=== PATIENT | female | born 1995 | race Caucasian/White ===

== ENCOUNTER 2016-08-12 16:43 | Inpatient (IN) | payer OTHER ==
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
[2016-08-12 21:32] VITALS: BMI 20.6
[2016-08-12] MEDS ORDERED: P-EPHED 60MG/TRIPROLIDI 2.5MG TABLET PO PRN (21:37)
[2016-08-12] MEDS ORDERED: MAG HYDROX/AL HYDROX/SIMETH 30 ML UNIT-DOSE CUP PO PRN (21:37)
[2016-08-12] MEDS ORDERED: MENTHOL/PHENOL 1 EACH UD MM PRN (21:37)
[2016-08-12] MEDS ORDERED: METHADONE HCL 10 MG TABLET (FOR DETOX USE ONLY) PO ONE ×2 (21:37→23:00)
[2016-08-12] MEDS ORDERED: LOPERAMIDE HCL 2 MG CAPSULE PO PRN (21:37)
[2016-08-12] MEDS ORDERED: MAGNESIUM HYDROX 2400MG/30ML ORAL SUSPENSION 30 ML CUP PO PRN (21:37)
[2016-08-12] MEDS ORDERED: diazePAM 5 MG TABLET PO ONE (21:37)
[2016-08-12] MEDS ORDERED: ACETAMINOPHEN 325 MG TABLET (FP) PO PRN (21:37)
[2016-08-12] MEDS ORDERED: guaiFENesin/D-METHORPHAN HB 10 ML UNIT-DOSE CUPS PO PRN (21:37)
[2016-08-12] MEDS ORDERED: MAGNESIUM CITRATE 300 ML BOTTLE PO PRN (21:37)
[2016-08-12] MEDS ORDERED: IBUPROFEN 400 MG TABLET (FP) PO PRN (21:37)
[2016-08-12] MEDS ORDERED: diazePAM 5 MG TABLET PO PRN (21:37)
[2016-08-12] MEDS ORDERED: diazePAM 5 MG TABLET PO SCH (22:00)
[2016-08-13] MEDS ORDERED: METHADONE HCL 10 MG TABLET (FOR DETOX USE ONLY) PO ONE ×6 (00:44→23:00)
[2016-08-13] MEDS ORDERED: diazePAM 5 MG TABLET PO PRN (00:44)
[2016-08-13] MEDS ORDERED: diazePAM 5 MG TABLET PO ONE ×2 (00:44→01:37)
[2016-08-13 02:38] LABS: URINE APPEARANCE CLOUDY; URINE BILIRUBIN NEGATIVE (NEGATIVE); URINE BLOOD NEGATIVE (NEGATIVE); URINE COLOR YELLOW; URINE GLUCOSE (UA) NEGATIVE (NEGATIVE); URINE KETONE NEGATIVE (NEGATIVE); URINE LEUK ESTERASE NEGATIVE (NEGATIVE); URINE NITRITE NEGATIVE (NEGATIVE); URINE PROTEIN NEGATIVE (NEGATIVE); URINE UROBILINOGEN NEGATIVE E.U./dl (0.2-1.0)
[2016-08-13] MEDS: THIAMINE HCL 100 MG TABLET (FP) PO SCH ×2 (04:04→22:18)
[2016-08-13] MEDS ORDERED: diazePAM 5 MG TABLET PO SCH (06:00)
[2016-08-13] MEDS: diazePAM 5 MG TABLET PO SCH ×3 (06:48→22:19)
--- NOTE | 2016-08-13 07:41 | CONSULT ---
[facility] Psychiatric Consult - Data Date of interview: 08/13/16 Admission source: [facility] Identifying data: This is 21 years old female with no psychiatric hospitalization history intoxicated with: Opioids, Xanax and Nicotine Substance Abuse History: Smoking history: Current every day smoker. Have you smoked in the past 12 months: Yes. Aproximately how many cigarettes per day: 10. Cigars Per Day: 0. Hx Chewing Tobacco Use: No. Initiated information on smoking cessation: Yes. 'Breaking Loose' booklet given: 08/12/16. - Substance & Tx. History. Hx Alcohol Use: No. Hx Substance Use: Yes. Substance Use Type : Marijuana, Opiates, Tranquilizers. Hx Substance Use Treatment: Yes. - Substances Abused. Heroin. Route: Injection. Frequency: Daily. Amount used: 10 BAGS. Age of first use: 19. Date of Last Use: 08/12/16. Alprazolam (Xanax). Route: Oral. Frequency: Daily. Amount used: 1.5 MG. Age of first use: 19. Date of Last Use: 08/12/16 Medical History: Asthma, Weight loss history Psychiatric History: Patient reports history [id number] anxiety, reports no medications taking prior to admission Physical/Sexual Abuse/Trauma History: Denies Additional Comment: Observation. Detox Unit Care Protocol Mental Status Exam - Mental Status Exam Alert and Oriented to: Person Cognitive Function: Fair Patient Appearance: Unkempt Mood: Sad Affect: Flat Patient Behavior: Sedated Speech Pattern: Delayed Voice Loudness: Mildly Soft/Quiet Thought Process: Circumstantial Thought Disorder: Being Controlled Hallucinations: Denies Suicidal Ideation: Denies Homicidal Ideation: Denies Insight/Judgement: Fair Sleep: Difficulty falling asleep Appetite: Weight loss Muscle strength/Tone: Mild Hypotonicity Gait/Station: Shuffling Additional Comments: Observation. Detox Unit Care Protocol Psychiatric Findings - Problem List ([place] 1, 2,3) (1) Nicotine dependence Current Visit: Yes Status: Acute Qualifiers: Nicotine product type: cigarettes Substance use status: uncomplicated Qualified Code(s): F17.210 - Nicotine dependence, cigarettes, uncomplicated (2) Opioid dependence with withdrawal Current Visit: Yes Status: Acute (3) Sedative, hypnotic or anxiolytic dependence with withdrawal, uncomplicated Current Visit: Yes Status: Acute (4) Drug-induced mood disorder Current Visit: Yes Status: Acute - Initial Treatment Plan Initial Treatment Plan: Observation. Detox Unit Care Protocol
[2016-08-13] MEDS ORDERED: METHADONE HCL 10 MG TABLET (FOR DETOX USE ONLY) PO SCH (10:00)
[2016-08-13] MEDS: PRENATAL VITAMINS W/ FOLIC ACID TABLET (FP) PO SCH (10:34)
[2016-08-13] MEDS: NICOTINE 14 MG/24 HOURS TOPICAL PATCH TD SCH (10:35)
[2016-08-13] MEDS: diazePAM 5 MG TABLET PO PRN ×2 (10:35→20:13)
[2016-08-13] MEDS: NICOTINE POLACRILEX 2 MG GUM BC PRN ×2 (10:35→20:40)
[2016-08-13 10:46] LABS: MCH 29.1 pg (25.7-33.7); MCHC 33.2 g/dl (32.0-36.0); MEAN CELL VOLUME 87.6 fl (80-96); MEAN PLT VOLUME 7.9 fl (7.5-11.1); PLATELET COUNT 406 K/MM3 (134-434); RDW 14.1 % (11.6-15.6); WHITE BLOOD COUNT 9.4 K/mm3 (4.0-10.0)
[2016-08-13 10:52] LABS: ALBUMIN 3.8 g/dl (3.4-5.0); ALK PHOS 72 U/L (45-117); ANION GAP 7 (8-16); BILIRUBIN,TOTAL 0.3 mg/dL (0.2-1.0); CALCIUM 9.2 mg/dL (8.5-10.1); CO2 28 mmol/L (21-32); CREATININE 0.8 mg/dL (0.55-1.02); GLUCOSE,RANDOM 103 mg/dL (74-106); SGOT/AST 10 U/L (15-37); SGPT/ALT 13 U/L (12-78)
--- NOTE | 2016-08-13 11:17 | PN ---
[facility] CIWA - CIWA Score Nausea/Vomitin-No Nausea/No Vomiting Muscle Tremors: 4-Moderate,w/Arms Extend Anxiety: 3 Agitation: 3 Paroxysmal Sweats: 3 Orientation: 0-Oriented Tacttile Disturbances: 0-None Auditory Disturbances: 0-None Visual Disturbances: 0-None Headache: 1-Very Mild CIWA-Ar Total Score: 14 BHS COWS - Scale Resting Pulse: 1= MD 81-100 Sweatin=Flushed/Facial Moisture Restless Observation: 1= Difficult to Sit Still Pupil Size: 0= Normal to Room Light Bone or Joint Aches: 2= Severe Diffuse Aches Runny Nose/ Eye Tearin= Runny Nose/Eyes GI Upset > 30mins: 1= Stomach Cramp Tremor Observation of Outstretched Hands: 2= Slight Tremor Visible Yawning Observation: 2= >3x During Session Anxiety or Irritability: 2=Irritable/Anxious Goose Flesh Skin: 0=Smooth Skin COWS Score: 15 [facility] Progress Note (SOAP) Subjective: agitation anxiety stomach cramps sweats chills interrupted sleep Objective: 08/13/16 11:16 Vital Signs Temperature 98.1 F 08/13/16 10:09 Pulse Rate 82 08/13/16 10:09 Respiratory Rate 18 08/13/16 10:09 Blood Pressure 134/86 08/13/16 10:09 O2 Sat by Pulse Oximetry (%) Laboratory Tests 08/13/16 08/13/16 08/13/16 00:05 07:00 07:00 WBC 9.4 RBC 4.42 Hgb 12.8 Hct 38.7 MCV 87.6 MCHC 33.2 RDW 14.1 Plt Count 406 MPV 7.9 Sodium 141 Potassium 4.1 Chloride 106 Carbon Dioxide 28 Anion Gap 7 L BUN 14 Creatinine 0.8 Creat Clearance w eGFR > 60 Random Glucose 103 Calcium 9.2 Total Bilirubin 0.3 AST 10 L ALT 13 Alkaline Phosphatase 72 Total Protein 7.0 Albumin 3.8 Urine Color Yellow Urine Appearance Cloudy Urine pH 6.0 Ur Specific [place] 1.013 Urine Protein Negative Urine Glucose (UA) Negative Urine Ketones Negative Urine Blood Negative Urine Nitrite Negative Urine Bilirubin Negative Urine Urobilinogen Negative Ur Leukocyte Esterase Negative awake/alert ambulating no acute distress Assessment: 08/13/16 11:16 withdrawal sx Plan: continue detox increase fluids mom/mylanta prn
--- NOTE | 2016-08-13 11:51 | EKG ---
Test Reason : Blood Pressure : / mmHG Vent. Rate : 064 BPM Atrial Rate : 064 BPM P-R Int : 140 ms QRS Dur : 086 ms QT Int : 400 ms P-R-T Axes : 067 064 055 degrees QTc Int : 412 ms NORMAL SINUS RHYTHM WITH SINUS ARRHYTHMIA NORMAL ECG NO PREVIOUS ECGS AVAILABLE Confirmed by LIMA HERNANDES, MICKEY ([id number]) on 08/13/2016 11:51:11 AM Referred By: Confirmed By:MICKEY AMATO MD
[2016-08-13] MEDS: CYCLOBENZAPRINE HCL 10 MG TABLET (FP) PO PRN ×2 (13:18→22:19)
[2016-08-14] MEDS: diazePAM 5 MG TABLET PO SCH ×3 (05:59→22:26)
[2016-08-14] MEDS ORDERED: METHADONE HCL 10 MG TABLET (FOR DETOX USE ONLY) PO SCH ×2 (10:00)
[2016-08-14] MEDS ORDERED: METHADONE HCL 5 MG TABLET (FOR DETOX USE ONLY) PO SCH (10:00)
[2016-08-14] MEDS ORDERED: diazePAM 5 MG TABLET PO SCH (10:00)
[2016-08-14] MEDS: diazePAM 5 MG TABLET PO PRN ×2 (10:45→17:53)
[2016-08-14] MEDS: PRENATAL VITAMINS W/ FOLIC ACID TABLET (FP) PO SCH (10:45)
[2016-08-14] MEDS: NICOTINE 14 MG/24 HOURS TOPICAL PATCH TD SCH (10:47)
[2016-08-14] MEDS: NICOTINE POLACRILEX 2 MG GUM BC PRN ×3 (10:47→19:46)
--- NOTE | 2016-08-14 11:08 | PN ---
[facility] CIWA - CIWA Score Nausea/Vomitin Muscle Tremors: 3 Anxiety: 3 Agitation: 3 Paroxysmal Sweats: 3 Orientation: 0-Oriented Tacttile Disturbances: 1-Very Mild Itch/Numbness Auditory Disturbances: 0-None Visual Disturbances: 0-None Headache: 0-None Present CIWA-Ar Total Score: 15 S COWS - Scale Resting Pulse: 0= [place] 80 or Below Sweatin=Flushed/Facial Moisture Restless Observation: 1= Difficult to Sit Still Pupil Size: 1= Pupils >than Normal Bone or Joint Aches: 1= Mild Discomfort Runny Nose/ Eye Tearin= Nasal Congestion GI Upset > 30mins: 1= Stomach Cramp Tremor Observation of Outstretched Hands: 1= Tremor [place], Not Seen Yawning Observation: 0= None Anxiety or Irritability: 2=Irritable/Anxious Goose Flesh Skin: 0=Smooth Skin COWS Score: 10 S Progress Note (SOAP) Subjective: interrupted sleep, sweats, shakes Objective: 08/14/16 11:07 Vital Signs Temperature 97 F L 08/14/16 10:15 Pulse Rate 77 08/14/16 10:15 Respiratory Rate 18 08/14/16 10:15 Blood Pressure 117/64 08/14/16 10:15 O2 Sat by Pulse Oximetry (%) Laboratory Tests 08/13/16 08/13/16 08/13/16 00:05 07:00 07:00 WBC 9.4 RBC 4.42 Hgb 12.8 Hct 38.7 MCV 87.6 MCHC 33.2 RDW 14.1 Plt Count 406 MPV 7.9 Sodium 141 Potassium 4.1 Chloride 106 Carbon Dioxide 28 Anion Gap 7 L BUN 14 Creatinine 0.8 Creat Clearance w eGFR > 60 Random Glucose 103 Calcium 9.2 Total Bilirubin 0.3 AST 10 L ALT 13 Alkaline Phosphatase 72 Total Protein 7.0 Albumin 3.8 Urine Color Yellow Urine Appearance Cloudy Urine pH 6.0 Ur Specific [place] 1.013 Urine Protein Negative Urine Glucose (UA) Negative Urine Ketones Negative Urine Blood Negative Urine Nitrite Negative Urine Bilirubin Negative Urine Urobilinogen Negative Ur Leukocyte Esterase Negative RPR Titer Hepatitis C Antibody 08/13/16 08/13/16 07:00 09:00 WBC RBC Hgb Hct MCV MCHC RDW Plt Count MPV Sodium Potassium Chloride Carbon Dioxide Anion Gap BUN Creatinine Creat Clearance w eGFR Random Glucose Calcium Total Bilirubin AST ALT Alkaline Phosphatase Total Protein Albumin Urine Color Urine Appearance Urine pH Ur Specific [place] Urine Protein Urine Glucose (UA) Urine Ketones Urine Blood Urine Nitrite Urine Bilirubin Urine Urobilinogen Ur Leukocyte Esterase RPR Titer Nonreactive Hepatitis C Antibody <0.1 Assessment: 08/14/16 11:07 withdrawl sx's Plan: cont. detox increase fluids
[2016-08-14] MEDS: CYCLOBENZAPRINE HCL 10 MG TABLET (FP) PO PRN (22:26)
[2016-08-14] MEDS: diphenhydrAMINE HCL 50 MG CAPSULE PO PRN (22:26)
[2016-08-14] MEDS: THIAMINE HCL 100 MG TABLET (FP) PO SCH (22:26)
[2016-08-15] MEDS ORDERED: diazePAM 5 MG TABLET PO SCH (10:00)
[2016-08-15] MEDS ORDERED: METHADONE HCL 5 MG TABLET (FOR DETOX USE ONLY) PO SCH (10:00)
[2016-08-15] MEDS: METHADONE HCL 5 MG TABLET (FOR DETOX USE ONLY) PO SCH (11:08)
[2016-08-15] MEDS: PRENATAL VITAMINS W/ FOLIC ACID TABLET (FP) PO SCH (11:08)
[2016-08-15] MEDS: diazePAM 5 MG TABLET PO SCH ×2 (11:09→22:32)
[2016-08-15] MEDS: NICOTINE 14 MG/24 HOURS TOPICAL PATCH TD SCH (11:10)
[2016-08-15] MEDS: NICOTINE POLACRILEX 2 MG GUM BC PRN ×3 (11:12→23:23)
[2016-08-15] MEDS ORDERED: ALBUTEROL SO4 6.7 GM HFA INHALER IH PRN (11:14)
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
[2016-08-15] MEDS: FLUTICASONE/SALMETEROL 100 MCG/50 MCG DISKUS IH SCH ×2 (12:09→22:31)
--- NOTE | 2016-08-15 12:17 | PN ---
[facility] Progress Note (SOAP) Subjective: sweats interrupted sleep i need to speak with psych again Objective: 08/15/16 12:16 Vital Signs Temperature 97.2 F L 08/15/16 10:00 Pulse Rate 92 H 08/15/16 10:00 Respiratory Rate 18 08/15/16 10:00 Blood Pressure 117/62 08/15/16 10:00 O2 Sat by Pulse Oximetry (%) Laboratory Tests 08/13/16 08/13/16 08/13/16 00:05 07:00 07:00 WBC 9.4 RBC 4.42 Hgb 12.8 Hct 38.7 MCV 87.6 MCHC 33.2 RDW 14.1 Plt Count 406 MPV 7.9 Sodium 141 Potassium 4.1 Chloride 106 Carbon Dioxide 28 Anion Gap 7 L BUN 14 Creatinine 0.8 Creat Clearance w eGFR > 60 Random Glucose 103 Calcium 9.2 Total Bilirubin 0.3 AST 10 L ALT 13 Alkaline Phosphatase 72 Total Protein 7.0 Albumin 3.8 Urine Color Yellow Urine Appearance Cloudy Urine pH 6.0 Ur Specific [place] 1.013 Urine Protein Negative Urine Glucose (UA) Negative Urine Ketones Negative Urine Blood Negative Urine Nitrite Negative Urine Bilirubin Negative Urine Urobilinogen Negative Ur Leukocyte Esterase Negative RPR Titer Hepatitis C Antibody 08/13/16 08/13/16 07:00 09:00 WBC RBC Hgb Hct MCV MCHC RDW Plt Count MPV Sodium Potassium Chloride Carbon Dioxide Anion Gap BUN Creatinine Creat Clearance w eGFR Random Glucose Calcium Total Bilirubin AST ALT Alkaline Phosphatase Total Protein Albumin Urine Color Urine Appearance Urine pH Ur Specific [place] Urine Protein Urine Glucose (UA) Urine Ketones Urine Blood Urine Nitrite Urine Bilirubin Urine Urobilinogen Ur Leukocyte Esterase RPR Titer Nonreactive Hepatitis C Antibody <0.1 awake/alert ambulating no acute distress Assessment: 08/15/16 12:16 withdrawal sx Plan: continue detox increase fluids psych ordered.
[2016-08-15] MEDS: diazePAM 5 MG TABLET PO PRN ×2 (15:34→19:57)
[2016-08-15] MEDS ORDERED: QUEtiapine FUMARATE 25 MG TABLET (FP) PO SCH (22:00)
[2016-08-15] MEDS: CYCLOBENZAPRINE HCL 10 MG TABLET (FP) PO PRN (22:31)
[2016-08-15] MEDS: diphenhydrAMINE HCL 50 MG CAPSULE PO PRN (22:31)
[2016-08-15] MEDS: THIAMINE HCL 100 MG TABLET (FP) PO SCH (22:32)
[2016-08-16] MEDS ORDERED: hydrOXYzine HCL 100 MG/2 ML VIAL IM PRN (04:43)
[2016-08-16] MEDS ORDERED: hydrOXYzine PAMOATE 50 MG CAPSULE (FP) PO PRN (05:02)
[2016-08-16] MEDS ORDERED: METHADONE HCL 10 MG TABLET (FOR DETOX USE ONLY) PO SCH (10:00)
[2016-08-16] MEDS ORDERED: diazePAM 5 MG TABLET PO SCH (10:00)
[2016-08-16 10:08] VITALS: BP 121/65; PULSE 92; TEMP 98.1
[2016-08-16] MEDS: PRENATAL VITAMINS W/ FOLIC ACID TABLET (FP) PO SCH (11:45)
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
[2016-08-16] MEDS: NICOTINE POLACRILEX 2 MG GUM BC PRN (11:46)
[2016-08-16] MEDS: METHADONE HCL 5 MG TABLET (FOR DETOX USE ONLY) PO SCH (11:46)
[2016-08-16] MEDS: diazePAM 5 MG TABLET PO SCH (11:46)
[2016-08-16] MEDS: NICOTINE 14 MG/24 HOURS TOPICAL PATCH TD SCH (11:47)
[2016-08-16] MEDS: FLUTICASONE/SALMETEROL 100 MCG/50 MCG DISKUS IH SCH (11:47)
--- NOTE | 2016-08-16 11:47 | DS ---
[facility] Detox Discharge Summary Admission Date: 08/12/16 Discharge Date: 08/16/16 - History Present History: Opioid Dependence Additional Comments: astma, nicotine dependence, anxiety, depression, insomnia - Physical Exam Results Vital Signs: Vital Signs Temperature 98.1 F 08/16/16 10:07 Pulse Rate 92 H 08/16/16 10:07 Respiratory Rate 16 08/16/16 10:07 Blood Pressure 121/65 08/16/16 10:07 O2 Sat by Pulse Oximetry (%) Pertinent Admission Physical Exam Findings: withdrawal sx - Treatment Hospital Course: Detox Protocol Followed, Detoxed Safely, Responded well, Discharged Condition Good, Rehab Referral Accepted Patient has Accepted a Rehab Referral to: Yes - Medication Discharge Medications: Ambulatory Orders Quetiapine Fumarate [Seroquel -] 25 mg PO HS #30 tablet 08/15/16 - Diagnosis (1) Asthma Current Visit: Yes Status: Acute Qualifiers: Asthma severity: mild intermittent Asthma complication type: with status asthmaticus Qualified Code(s): J45.22 - Mild intermittent asthma with status asthmaticus (2) Drug-induced mood disorder Current Visit: Yes Status: Acute (3) Nicotine dependence Current Visit: Yes Status: Acute Qualifiers: Nicotine product type: cigarettes Substance use status: uncomplicated Qualified Code(s): F17.210 - Nicotine dependence, cigarettes, uncomplicated (4) Opioid dependence with withdrawal Current Visit: Yes Status: Acute (5) Sedative, hypnotic or anxiolytic dependence with withdrawal, uncomplicated Current Visit: Yes Status: Acute (6) Weight loss Current Visit: Yes Status: Acute (7) Anxiety Current Visit: Yes Status: Suspected - AMA Did Patient Leave Against Medical Advice: No
[2016-08-17] MEDS ORDERED: METHADONE HCL 5 MG TABLET (FOR DETOX USE ONLY) PO SCH (06:00)
[2016-08-17] MEDS ORDERED: diazePAM 5 MG TABLET PO SCH ×2 (10:00)
[2016-08-17] MEDS ORDERED: METHADONE HCL 10 MG TABLET (FOR DETOX USE ONLY) PO SCH ×2 (10:00)
[2016-08-18] MEDS ORDERED: METHADONE HCL 5 MG TABLET (FOR DETOX USE ONLY) PO SCH ×2 (06:00)
== END 2016-08-16 12:08 | disposition home or self-care (01) | DRG 773 ==
LOC: YASAS 16:43 → Y6N 22:38
PROVIDERS: ADMIT Internal Medicine Addiction Medicine; ATTEND Internal Medicine Addiction Medicine
PROC: HZ2ZZZZ Detoxification Services for Substance Abuse Treatment (ICD-10-PCS; principal; 2016-08-12)
DX: F11.23 Opioid dependence with withdrawal (principal); F13.230 Sedative, hypnotic or anxiolytic dependence with withdrawal, uncomplicated; F17.210 Nicotine dependence, cigarettes, uncomplicated; F19.24 Other psychoactive substance dependence with psychoactive substance-induced mood disorder; F41.9 Anxiety disorder, unspecified; J45.22 Mild intermittent asthma with status asthmaticus; Z87.898 Personal history of other specified conditions; Z91.5 Personal history of self-harm
CPT/HCPCS: 36415; 71020-TC; 80053; 81003; 85027; 86593; 86803; 93005; 93010

== ENCOUNTER 2017-11-22 11:57 | Inpatient (IN) | payer OTHER ==
[2017-11-22 13:07] VITALS: BMI 20.1
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
[2017-11-22] MEDS ORDERED: IBUPROFEN 400 MG TABLET (FP) PO PRN (14:16)
[2017-11-22] MEDS ORDERED: P-EPHED 60MG/TRIPROLIDI 2.5MG TABLET PO PRN (14:16)
[2017-11-22] MEDS ORDERED: ACETAMINOPHEN 325 MG TABLET (FP) PO PRN (14:16)
[2017-11-22] MEDS ORDERED: MENTHOL/PHENOL 1 EACH UD MM PRN (14:16)
[2017-11-22] MEDS ORDERED: LOPERAMIDE HCL 2 MG CAPSULE PO PRN (14:16)
[2017-11-22] MEDS ORDERED: MAGNESIUM CITRATE 300 ML BOTTLE PO PRN (14:16)
[2017-11-22] MEDS ORDERED: MAGNESIUM HYDROX 2400MG/30ML ORAL SUSPENSION 30 ML CUP PO PRN (14:16)
[2017-11-22] MEDS ORDERED: MAG HYDROX/AL HYDROX/SIMETH 30 ML UNIT-DOSE CUP PO PRN (14:16)
[2017-11-22] MEDS ORDERED: guaiFENesin/D-METHORPHAN HB 10 ML UNIT-DOSE CUPS PO PRN (14:16)
[2017-11-22] MEDS ORDERED: METHADONE HCL 10 MG TABLET (FOR DETOX USE ONLY) PO ONE ×2 (17:00→23:00)
[2017-11-22] MEDS: diazePAM 5 MG TABLET PO PRN ×2 (18:28→22:18)
[2017-11-22] MEDS ORDERED: MELATONIN 5 MG TABLETS PO PRN (22:00)
[2017-11-22] MEDS: THIAMINE HCL 100 MG TABLET (FP) PO SCH (22:18)
[2017-11-23 09:47] LABS: HEMATOCRIT 36.6 % (32.4-45.2); HEMOGLOBIN 12.4 GM/dL (10.7-15.3); MCH 29.8 pg (25.7-33.7); MCHC 33.8 g/dl (32.0-36.0); MEAN CELL VOLUME 88.1 fl (80-96); MEAN PLT VOLUME 7.8 fl (7.5-11.1); PLATELET COUNT 330 K/MM3 (134-434); RBC 4.15 M/mm3 (3.60-5.2); RDW 13.2 % (11.6-15.6)
[2017-11-23] MEDS ORDERED: METHADONE HCL 10 MG TABLET (FOR DETOX USE ONLY) PO ONE (10:00)
[2017-11-23 10:04] LABS: ALBUMIN 3.3 g/dl (3.4-5.0); ANION GAP 3 (8-16); BLOOD UREA NITROGEN 14 mg/dL (7-18); CALCIUM 8.7 mg/dL (8.5-10.1); CHLORIDE 106 mmol/L (98-107); CO2 30 mmol/L (21-32); GLUCOSE,RANDOM 85 mg/dL (74-106); POTASSIUM 4.3 mmol/L (3.5-5.1); SODIUM 139 mmol/L (136-145)
[2017-11-23 10:08] LABS: ALK PHOS 75 U/L (45-117); BILIRUBIN,TOTAL 0.2 mg/dL (0.2-1.0); CREATININE 0.7 mg/dL (0.55-1.02); SGOT/AST 12 U/L (15-37); SGPT/ALT 15 U/L (12-78); TOT PROT 6.6 g/dl (6.4-8.2)
[2017-11-23] MEDS: PRENATAL VITAMINS W/ FOLIC ACID TABLET (FP) PO SCH (10:27)
[2017-11-23] MEDS: diazePAM 5 MG TABLET PO PRN ×3 (10:28→18:48)
--- NOTE | 2017-11-23 10:31 | PN ---
BHS COWS - Scale Resting Pulse: 1= [place] 81-100 Sweatin= Chills/Flushing Restless Observation: 1= Difficult to Sit Still Pupil Size: 1= Pupils >than Normal Bone or Joint Aches: 2= Severe Diffuse Aches Runny Nose/ Eye Tearin= Runny Nose/Eyes GI Upset > 30mins: 2= Nausea/Diarrhea Tremor Observation of Outstretched Hands: 2= Slight Tremor Visible Yawning Observation: 2= >3x During Session Anxiety or Irritability: 2=Irritable/Anxious Goose Flesh Skin: 0=Smooth Skin COWS Score: 16 BHS Progress Note (SOAP) Subjective: joint aches body pain gi distress sweat tremor trouble sleep at night Objective: 11/23/17 10:29 Vital Signs Temperature 95.7 F L 11/23/17 10:11 Pulse Rate 85 11/23/17 10:11 Respiratory Rate 18 11/23/17 10:11 Blood Pressure 129/70 11/23/17 10:11 O2 Sat by Pulse Oximetry (%) Laboratory Last Values WBC 7.0 K/mm3 (4.0-10.0) 11/23/17 07:00 RBC 4.15 M/mm3 (3.60-5.2) 11/23/17 07:00 Hgb 12.4 GM/dL (10.7-15.3) 11/23/17 07:00 Hct 36.6 % (32.4-45.2) 11/23/17 07:00 MCV 88.1 fl (80-96) 11/23/17 07:00 MCH 29.8 pg (25.7-33.7) 11/23/17 07:00 MCHC 33.8 g/dl (32.0-36.0) 11/23/17 07:00 RDW 13.2 % (11.6-15.6) 11/23/17 07:00 Plt Count 330 K/MM3 (134-434) 11/23/17 07:00 MPV 7.8 fl (7.5-11.1) 11/23/17 07:00 Sodium 139 mmol/L (136-145) 11/23/17 07:00 Potassium 4.3 mmol/L (3.5-5.1) 11/23/17 07:00 Chloride 106 mmol/L (98-107) 11/23/17 07:00 Carbon Dioxide 30 mmol/L (21-32) 11/23/17 07:00 Anion Gap 3 (8-16) L 11/23/17 07:00 BUN 14 mg/dL (7-18) 11/23/17 07:00 Creatinine 0.7 mg/dL (0.55-1.02) 11/23/17 07:00 Creat Clearance w eGFR > 60 (>60) 11/23/17 07:00 Random Glucose 85 mg/dL (74-106) 11/23/17 07:00 Calcium 8.7 mg/dL (8.5-10.1) 11/23/17 07:00 Total Bilirubin 0.2 mg/dL (0.2-1.0) D 11/23/17 07:00 AST 12 U/L (15-37) L 11/23/17 07:00 ALT 15 U/L (12-78) 11/23/17 07:00 Alkaline Phosphatase 75 U/L (45-117) 11/23/17 07:00 Total Protein 6.6 g/dl (6.4-8.2) 11/23/17 07:00 Albumin 3.3 g/dl (3.4-5.0) L 11/23/17 07:00 lab noted Assessment: 11/23/17 10:29 withdrawal sx Plan: continue detox increase oral fluid
--- NOTE | 2017-11-23 12:29 | EKG ---
Test Reason : Blood Pressure : / mmHG Vent. Rate : 092 BPM Atrial Rate : 092 BPM P-R Int : 140 ms QRS Dur : 090 ms QT Int : 356 ms P-R-T Axes : 059 053 037 degrees QTc Int : 440 ms NORMAL SINUS RHYTHM NORMAL ECG WHEN COMPARED WITH ECG OF 13-AUG-2016 03:22, NO SIGNIFICANT CHANGE WAS FOUND Confirmed by KALIE GUTIÉRREZ MD ([id number]) on 11/23/2017 12:28:57 PM Referred By: Yemi Szymanski Confirmed By:KALIE GUTIÉRREZ MD
[2017-11-23] MEDS: NICOTINE 14 MG/24 HOURS TOPICAL PATCH TD SCH (14:00)
[2017-11-23] MEDS: NICOTINE POLACRILEX 2 MG GUM BUC PRN ×2 (14:01→22:38)
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
[2017-11-23] MEDS: ZOLPIDEM TARTRATE 5 MG TABLET PO PRN (22:37)
[2017-11-23] MEDS: THIAMINE HCL 100 MG TABLET (FP) PO SCH (22:37)
[2017-11-24] MEDS: diazePAM 5 MG TABLET PO PRN ×4 (06:43→21:02)
[2017-11-24] MEDS ORDERED: METHADONE HCL 5 MG TABLET (FOR DETOX USE ONLY) PO ONE (10:00)
[2017-11-24] MEDS: PRENATAL VITAMINS W/ FOLIC ACID TABLET (FP) PO SCH (10:58)
[2017-11-24] MEDS: NICOTINE 14 MG/24 HOURS TOPICAL PATCH TD SCH (10:58)
[2017-11-24] MEDS: NICOTINE POLACRILEX 2 MG GUM BUC PRN (11:01)
--- NOTE | 2017-11-24 11:17 | PN ---
BHS COWS - Scale Resting Pulse: 0= [place] 80 or Below Sweatin= Chills/Flushing Restless Observation: 1= Difficult to Sit Still Pupil Size: 2= Moderately Dilated Bone or Joint Aches: 2= Severe Diffuse Aches Runny Nose/ Eye Tearin= Nasal Congestion GI Upset > 30mins: 1= Stomach Cramp Tremor Observation of Outstretched Hands: 1= Tremor [place], Not Seen Yawning Observation: 2= >3x During Session Anxiety or Irritability: 2=Irritable/Anxious Goose Flesh Skin: 0=Smooth Skin COWS Score: 13 BHS Progress Note (SOAP) Subjective: body ache joint ache sweat tremor anxiety restlessness stuffy nose Objective: 11/24/17 11:16 Vital Signs Temperature 97.3 F L 11/24/17 10:39 Pulse Rate 80 11/24/17 10:39 Respiratory Rate 18 11/24/17 10:39 Blood Pressure 134/63 11/24/17 10:39 O2 Sat by Pulse Oximetry (%) Laboratory Last Values WBC 7.0 K/mm3 (4.0-10.0) 11/23/17 07:00 RBC 4.15 M/mm3 (3.60-5.2) 11/23/17 07:00 Hgb 12.4 GM/dL (10.7-15.3) 11/23/17 07:00 Hct 36.6 % (32.4-45.2) 11/23/17 07:00 MCV 88.1 fl (80-96) 11/23/17 07:00 MCH 29.8 pg (25.7-33.7) 11/23/17 07:00 MCHC 33.8 g/dl (32.0-36.0) 11/23/17 07:00 RDW 13.2 % (11.6-15.6) 11/23/17 07:00 Plt Count 330 K/MM3 (134-434) 11/23/17 07:00 MPV 7.8 fl (7.5-11.1) 11/23/17 07:00 Sodium 139 mmol/L (136-145) 11/23/17 07:00 Potassium 4.3 mmol/L (3.5-5.1) 11/23/17 07:00 Chloride 106 mmol/L (98-107) 11/23/17 07:00 Carbon Dioxide 30 mmol/L (21-32) 11/23/17 07:00 Anion Gap 3 (8-16) L 11/23/17 07:00 BUN 14 mg/dL (7-18) 11/23/17 07:00 Creatinine 0.7 mg/dL (0.55-1.02) 11/23/17 07:00 Creat Clearance w eGFR > 60 (>60) 11/23/17 07:00 Random Glucose 85 mg/dL (74-106) 11/23/17 07:00 Calcium 8.7 mg/dL (8.5-10.1) 11/23/17 07:00 Total Bilirubin 0.2 mg/dL (0.2-1.0) D 11/23/17 07:00 AST 12 U/L (15-37) L 11/23/17 07:00 ALT 15 U/L (12-78) 11/23/17 07:00 Alkaline Phosphatase 75 U/L (45-117) 11/23/17 07:00 Total Protein 6.6 g/dl (6.4-8.2) 11/23/17 07:00 Albumin 3.3 g/dl (3.4-5.0) L 11/23/17 07:00 RPR Titer Nonreactive (NONREACTIVE) 11/23/17 07:00 Hep C Ab Diagnostic <0.1 s/co ratio (0.0-0.9) 11/23/17 07:00 Liver Fibrosis Interp (.) 11/23/17 07:00 HIV 1&2 Antibody Screen Negative 11/23/17 07:00 HIV P24 Antigen Negative 11/23/17 07:00 lab noted Assessment: 11/24/17 11:17 withdrawal sx Plan: continue detox
[2017-11-24] MEDS: ZOLPIDEM TARTRATE 5 MG TABLET PO PRN (22:31)
[2017-11-24] MEDS: THIAMINE HCL 100 MG TABLET (FP) PO SCH (22:53)
[2017-11-24] MEDS ORDERED: ALBUTEROL SO4 0.083% IH SOL 2.5 MG/3 ML VIAL.NEB. NEB PRN (22:55)
--- NOTE | 2017-11-25 09:59 | PN ---
S Progress Note (SOAP) Subjective: joint pain body ache sweat tremor anxiety gi distress restlessness Objective: 11/25/17 09:59 Vital Signs Temperature 97.9 F 11/25/17 09:33 Pulse Rate 80 11/25/17 09:33 Respiratory Rate 18 11/25/17 09:33 Blood Pressure 105/64 11/25/17 09:33 O2 Sat by Pulse Oximetry (%) Laboratory Last Values WBC 7.0 K/mm3 (4.0-10.0) 11/23/17 07:00 RBC 4.15 M/mm3 (3.60-5.2) 11/23/17 07:00 Hgb 12.4 GM/dL (10.7-15.3) 11/23/17 07:00 Hct 36.6 % (32.4-45.2) 11/23/17 07:00 MCV 88.1 fl (80-96) 11/23/17 07:00 MCH 29.8 pg (25.7-33.7) 11/23/17 07:00 MCHC 33.8 g/dl (32.0-36.0) 11/23/17 07:00 RDW 13.2 % (11.6-15.6) 11/23/17 07:00 Plt Count 330 K/MM3 (134-434) 11/23/17 07:00 MPV 7.8 fl (7.5-11.1) 11/23/17 07:00 Sodium 139 mmol/L (136-145) 11/23/17 07:00 Potassium 4.3 mmol/L (3.5-5.1) 11/23/17 07:00 Chloride 106 mmol/L (98-107) 11/23/17 07:00 Carbon Dioxide 30 mmol/L (21-32) 11/23/17 07:00 Anion Gap 3 (8-16) L 11/23/17 07:00 BUN 14 mg/dL (7-18) 11/23/17 07:00 Creatinine 0.7 mg/dL (0.55-1.02) 11/23/17 07:00 Creat Clearance w eGFR > 60 (>60) 11/23/17 07:00 Random Glucose 85 mg/dL (74-106) 11/23/17 07:00 Calcium 8.7 mg/dL (8.5-10.1) 11/23/17 07:00 Total Bilirubin 0.2 mg/dL (0.2-1.0) D 11/23/17 07:00 AST 12 U/L (15-37) L 11/23/17 07:00 ALT 15 U/L (12-78) 11/23/17 07:00 Alkaline Phosphatase 75 U/L (45-117) 11/23/17 07:00 Total Protein 6.6 g/dl (6.4-8.2) 11/23/17 07:00 Albumin 3.3 g/dl (3.4-5.0) L 11/23/17 07:00 RPR Titer Nonreactive (NONREACTIVE) 11/23/17 07:00 Hep C Ab Diagnostic <0.1 s/co ratio (0.0-0.9) 11/23/17 07:00 Liver Fibrosis Interp (.) 11/23/17 07:00 HIV 1&2 Antibody Screen Negative 11/23/17 07:00 HIV P24 Antigen Negative 11/23/17 07:00 lab noted Assessment: 11/25/17 09:59 withdrawal sx Plan: continue detox
[2017-11-25] MEDS ORDERED: METHADONE HCL 5 MG TABLET (FOR DETOX USE ONLY) PO ONE (10:00)
[2017-11-25] MEDS: PRENATAL VITAMINS W/ FOLIC ACID TABLET (FP) PO SCH (10:18)
[2017-11-25] MEDS: diazePAM 5 MG TABLET PO PRN (10:18)
[2017-11-25] MEDS: NICOTINE 14 MG/24 HOURS TOPICAL PATCH TD SCH (10:19)
[2017-11-25] MEDS: hydrOXYzine PAMOATE 25 MG CAPSULE (FP) PO PRN (15:16)
[2017-11-25 18:30] LABS: URINE APPEARANCE SLCLOUDY; URINE BILIRUBIN NEGATIVE (<2.0 mg/dL); URINE COLOR YELLOW; URINE GLUCOSE (UA) NEGATIVE (NEGATIVE); URINE KETONE NEGATIVE (NEGATIVE); URINE LEUK ESTERASE NEGATIVE (NEGATIVE); URINE NITRITE NEGATIVE (NEGATIVE); URINE PROTEIN NEGATIVE (NEGATIVE); URINE UROBILINOGEN NEGATIVE mg/dL (0.2-1.0)
[2017-11-25] MEDS: ZOLPIDEM TARTRATE 5 MG TABLET PO PRN (22:25)
[2017-11-25] MEDS: THIAMINE HCL 100 MG TABLET (FP) PO SCH (22:25)
[2017-11-25] MEDS: ALBUTEROL SO4 18 GM HFA INHALER IH PRN (22:25)
[2017-11-26] MEDS ORDERED: METHADONE HCL 10 MG TABLET (FOR DETOX USE ONLY) PO ONE (10:00)
--- NOTE | 2017-11-26 10:04 | PN ---
BHS Progress Note (SOAP) Subjective: feeling better less sweat no tremor tolerates food and fluid well slept through the night Objective: 11/26/17 10:03 Vital Signs Temperature 98.1 F 11/26/17 04:00 Pulse Rate 71 11/26/17 04:00 Respiratory Rate 16 11/26/17 04:00 Blood Pressure 97/54 11/26/17 04:00 O2 Sat by Pulse Oximetry (%) Laboratory Last Values WBC 7.0 K/mm3 (4.0-10.0) 11/23/17 07:00 RBC 4.15 M/mm3 (3.60-5.2) 11/23/17 07:00 Hgb 12.4 GM/dL (10.7-15.3) 11/23/17 07:00 Hct 36.6 % (32.4-45.2) 11/23/17 07:00 MCV 88.1 fl (80-96) 11/23/17 07:00 MCH 29.8 pg (25.7-33.7) 11/23/17 07:00 MCHC 33.8 g/dl (32.0-36.0) 11/23/17 07:00 RDW 13.2 % (11.6-15.6) 11/23/17 07:00 Plt Count 330 K/MM3 (134-434) 11/23/17 07:00 MPV 7.8 fl (7.5-11.1) 11/23/17 07:00 Sodium 139 mmol/L (136-145) 11/23/17 07:00 Potassium 4.3 mmol/L (3.5-5.1) 11/23/17 07:00 Chloride 106 mmol/L (98-107) 11/23/17 07:00 Carbon Dioxide 30 mmol/L (21-32) 11/23/17 07:00 Anion Gap 3 (8-16) L 11/23/17 07:00 BUN 14 mg/dL (7-18) 11/23/17 07:00 Creatinine 0.7 mg/dL (0.55-1.02) 11/23/17 07:00 Creat Clearance w eGFR > 60 (>60) 11/23/17 07:00 Random Glucose 85 mg/dL (74-106) 11/23/17 07:00 Calcium 8.7 mg/dL (8.5-10.1) 11/23/17 07:00 Total Bilirubin 0.2 mg/dL (0.2-1.0) D 11/23/17 07:00 AST 12 U/L (15-37) L 11/23/17 07:00 ALT 15 U/L (12-78) 11/23/17 07:00 Alkaline Phosphatase 75 U/L (45-117) 11/23/17 07:00 Total Protein 6.6 g/dl (6.4-8.2) 11/23/17 07:00 Albumin 3.3 g/dl (3.4-5.0) L 11/23/17 07:00 Urine Color Yellow 11/25/17 15:00 Urine Appearance Slcloudy 11/25/17 15:00 Urine pH 7.0 (5.0-8.0) 11/25/17 15:00 Ur Specific [place] 1.018 (1.001-1.035) 11/25/17 15:00 Urine Protein Negative (NEGATIVE) 11/25/17 15:00 Urine Glucose (UA) Negative (NEGATIVE) 11/25/17 15:00 Urine Ketones Negative (NEGATIVE) 11/25/17 15:00 Urine Blood Negative (NEGATIVE) 11/25/17 15:00 Urine Nitrite Negative (NEGATIVE) 11/25/17 15:00 Urine Bilirubin Negative (<2.0 mg/dL) 11/25/17 15:00 Urine Urobilinogen Negative mg/dL (0.2-1.0) 11/25/17 15:00 Ur Leukocyte Esterase Negative (NEGATIVE) 11/25/17 15:00 RPR Titer Nonreactive (NONREACTIVE) 11/23/17 07:00 Hep C Ab Diagnostic <0.1 s/co ratio (0.0-0.9) 11/23/17 07:00 Liver Fibrosis Interp (.) 11/23/17 07:00 HIV 1&2 Antibody Screen Negative 11/23/17 07:00 HIV P24 Antigen Negative 11/23/17 07:00 lab noted Assessment: 11/26/17 10:03 mild withdrawal sx Plan: medically supervised detox
[2017-11-26] MEDS: PRENATAL VITAMINS W/ FOLIC ACID TABLET (FP) PO SCH (11:07)
[2017-11-26] MEDS: NICOTINE 14 MG/24 HOURS TOPICAL PATCH TD SCH (11:08)
[2017-11-26] MEDS: NICOTINE POLACRILEX 2 MG GUM BUC PRN (11:09)
[2017-11-26] MEDS: hydrOXYzine PAMOATE 25 MG CAPSULE (FP) PO PRN (15:34)
[2017-11-26] MEDS: ALBUTEROL SO4 18 GM HFA INHALER IH PRN (22:43)
[2017-11-26] MEDS: THIAMINE HCL 100 MG TABLET (FP) PO SCH (22:43)
[2017-11-26] MEDS: ZOLPIDEM TARTRATE 5 MG TABLET PO PRN (22:43)
[2017-11-27] MEDS ORDERED: METHADONE HCL 5 MG TABLET (FOR DETOX USE ONLY) PO ONE (06:00)
[2017-11-27 07:33] VITALS: BP 97/53; PULSE 69; TEMP 97.7
--- NOTE | 2017-11-27 10:32 | DS ---
[facility] Detox Discharge Summary Admission Date: 11/22/17 Discharge Date: 11/27/17 - History Present History: Opioid Dependence Additional Comments: 22 years old female admitted on 11/22/17 for opioid withdrawal sx completed detox regimen tolerated well denies opioid withdrawal sx aftercare [facility] as per counselor arranged - Physical Exam Results Vital Signs: Vital Signs Temperature 97.7 F 11/27/17 07:32 Pulse Rate 69 11/27/17 07:32 Respiratory Rate 16 11/27/17 07:32 Blood Pressure 97/53 11/27/17 07:32 O2 Sat by Pulse Oximetry (%) Pertinent Admission Physical Exam Findings: withdrawal sx Vital Signs Temperature 97.7 F 11/27/17 07:32 Pulse Rate 69 11/27/17 07:32 Respiratory Rate 16 11/27/17 07:32 Blood Pressure 97/53 11/27/17 07:32 O2 Sat by Pulse Oximetry (%) Laboratory Last Values WBC 7.0 K/mm3 (4.0-10.0) 11/23/17 07:00 RBC 4.15 M/mm3 (3.60-5.2) 11/23/17 07:00 Hgb 12.4 GM/dL (10.7-15.3) 11/23/17 07:00 Hct 36.6 % (32.4-45.2) 11/23/17 07:00 MCV 88.1 fl (80-96) 11/23/17 07:00 MCH 29.8 pg (25.7-33.7) 11/23/17 07:00 MCHC 33.8 g/dl (32.0-36.0) 11/23/17 07:00 RDW 13.2 % (11.6-15.6) 11/23/17 07:00 Plt Count 330 K/MM3 (134-434) 11/23/17 07:00 MPV 7.8 fl (7.5-11.1) 11/23/17 07:00 Sodium 139 mmol/L (136-145) 11/23/17 07:00 Potassium 4.3 mmol/L (3.5-5.1) 11/23/17 07:00 Chloride 106 mmol/L (98-107) 11/23/17 07:00 Carbon Dioxide 30 mmol/L (21-32) 11/23/17 07:00 Anion Gap 3 (8-16) L 11/23/17 07:00 BUN 14 mg/dL (7-18) 11/23/17 07:00 Creatinine 0.7 mg/dL (0.55-1.02) 11/23/17 07:00 Creat Clearance w eGFR > 60 (>60) 11/23/17 07:00 Random Glucose 85 mg/dL (74-106) 11/23/17 07:00 Calcium 8.7 mg/dL (8.5-10.1) 11/23/17 07:00 Total Bilirubin 0.2 mg/dL (0.2-1.0) D 11/23/17 07:00 AST 12 U/L (15-37) L 11/23/17 07:00 ALT 15 U/L (12-78) 11/23/17 07:00 Alkaline Phosphatase 75 U/L (45-117) 11/23/17 07:00 Total Protein 6.6 g/dl (6.4-8.2) 11/23/17 07:00 Albumin 3.3 g/dl (3.4-5.0) L 11/23/17 07:00 Urine Color Yellow 11/25/17 15:00 Urine Appearance Slcloudy 11/25/17 15:00 Urine pH 7.0 (5.0-8.0) 11/25/17 15:00 Ur Specific [place] 1.018 (1.001-1.035) 11/25/17 15:00 Urine Protein Negative (NEGATIVE) 11/25/17 15:00 Urine Glucose (UA) Negative (NEGATIVE) 11/25/17 15:00 Urine Ketones Negative (NEGATIVE) 11/25/17 15:00 Urine Blood Negative (NEGATIVE) 11/25/17 15:00 Urine Nitrite Negative (NEGATIVE) 11/25/17 15:00 Urine Bilirubin Negative (<2.0 mg/dL) 11/25/17 15:00 Urine Urobilinogen Negative mg/dL (0.2-1.0) 11/25/17 15:00 Ur Leukocyte Esterase Negative (NEGATIVE) 11/25/17 15:00 RPR Titer Nonreactive (NONREACTIVE) 11/23/17 07:00 Hep C Ab Diagnostic <0.1 s/co ratio (0.0-0.9) 11/23/17 07:00 Liver Fibrosis Interp (.) 11/23/17 07:00 HIV 1&2 Antibody Screen Negative 11/23/17 07:00 HIV P24 Antigen Negative 11/23/17 07:00 lab noted - Treatment Hospital Course: Detox Protocol Followed, Detoxed Safely, Responded well, Discharged Condition Good, Rehab Referral Accepted Patient has Accepted a Rehab Referral to: [facility] - Medication Discharge Medications: Ambulatory Orders Alprazolam [Xanax] 1.5 mg PO TID 11/22/17 Albuterol Sulfate Inhaler - [Ventolin HFA Inhaler -] 1 puff IN DAILY PRN #1 inhaler 11/26/17 - Diagnosis (1) Nicotine dependence Status: Acute Qualifiers: Nicotine product type: cigarettes Substance use status: in withdrawal Qualified Code(s): F17.213 - Nicotine dependence, cigarettes, with withdrawal (2) Opioid dependence with withdrawal Status: Acute (3) Positive PPD Status: Acute - AMA Did Patient Leave Against Medical Advice: No
== END 2017-11-27 07:55 | disposition home or self-care (01) | DRG 773 ==
LOC: YASAS 11:57 → Y6N 16:36
PROVIDERS: ADMIT Internal Medicine; ATTEND Internal Medicine
PROC: HZ2ZZZZ Detoxification Services for Substance Abuse Treatment (ICD-10-PCS; principal; 2017-11-22)
DX: F11.23 Opioid dependence with withdrawal (principal); F13.230 Sedative, hypnotic or anxiolytic dependence with withdrawal, uncomplicated; F14.20 Cocaine dependence, uncomplicated; F17.210 Nicotine dependence, cigarettes, uncomplicated; F19.24 Other psychoactive substance dependence with psychoactive substance-induced mood disorder; F64.0 Transsexualism; G47.00 Insomnia, unspecified; J45.22 Mild intermittent asthma with status asthmaticus; Z91.5 Personal history of self-harm
CPT/HCPCS: 36415; 71045-TC-FY; 80053; 81003; 85027; 86593; 87389; 93005; 93010

== ENCOUNTER 2018-05-10 12:00 | Inpatient (IN) | payer OTHER ==
[2018-05-10 14:04] VITALS: BMI 22.3
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
[2018-05-10] MEDS ORDERED: ACETAMINOPHEN 325 MG TABLET (FP) PO PRN (15:07)
[2018-05-10] MEDS ORDERED: MENTHOL/PHENOL 1 EACH UD MM PRN (15:07)
[2018-05-10] MEDS ORDERED: MAGNESIUM CITRATE 300 ML BOTTLE PO PRN (15:07)
[2018-05-10] MEDS ORDERED: MAG HYDROX/AL HYDROX/SIMETH 30 ML UNIT-DOSE CUP PO PRN (15:07)
[2018-05-10] MEDS ORDERED: P-EPHED 60MG/TRIPROLIDI 2.5MG TABLET PO PRN (15:07)
[2018-05-10] MEDS ORDERED: LOPERAMIDE HCL 2 MG CAPSULE PO PRN (15:07)
[2018-05-10] MEDS ORDERED: MAGNESIUM HYDROX 2400MG/30ML ORAL SUSPENSION 30 ML CUP PO PRN (15:07)
[2018-05-10] MEDS ORDERED: guaiFENesin/D-METHORPHAN HB 10 ML UNIT-DOSE CUPS PO PRN (15:07)
[2018-05-10] MEDS ORDERED: IBUPROFEN 400 MG TABLET (FP) PO PRN (15:07)
[2018-05-10] MEDS ORDERED: ALBUTEROL SO4 8 GM HFA INHALER IH PRN (15:20)
[2018-05-10] MEDS ORDERED: METHADONE HCL 10 MG TABLET (FOR DETOX USE ONLY) PO ONE ×2 (17:30→23:00)
[2018-05-10] MEDS: diazePAM 5 MG TABLET PO PRN ×2 (18:37→23:21)
[2018-05-10] MEDS ORDERED: MELATONIN 5 MG TABLETS PO PRN (22:00)
[2018-05-10 22:13] LABS: URINE APPEARANCE SLCLOUDY; URINE BILIRUBIN NEGATIVE (<2.0 mg/dL); URINE COLOR YELLOW; URINE GLUCOSE (UA) NEGATIVE (NEGATIVE); URINE KETONE NEGATIVE (NEGATIVE); URINE LEUK ESTERASE 3+ (NEGATIVE); URINE NITRITE NEGATIVE (NEGATIVE); URINE PROTEIN NEGATIVE (NEGATIVE); URINE UROBILINOGEN NEGATIVE mg/dL (0.2-1.0)
[2018-05-10] MEDS: THIAMINE HCL 100 MG TABLET (FP) PO SCH (22:15)
[2018-05-10] MEDS: hydrOXYzine PAMOATE 50 MG CAPSULE (FP) PO PRN (22:16)
[2018-05-10 23:05] LABS: EPI CELLS FEW /HPF (FEW)
--- NOTE | 2018-05-11 09:46 | CONSULT ---
[facility] Psychiatric Consult - Data Date of interview: 05/11/18 Admission source: [facility] Identifying data: Patient is a 23 year old transgender female to male. Patient is single without children. He is currently employed and lives with his mother. This is one of multiple admissions for patient. Patient admitted to for opioid dependene. Substance Abuse History: Smoking Cessation. Smoking history: Current every day smoker. Have you smoked in the past 12 months: Yes. Aproximately how many cigarettes per day: 10. Cigars Per Day: 0. Hx Chewing Tobacco Use: No. Initiated information on smoking cessation: Yes. 'Breaking Loose' booklet given : 05/10/18. - Substance & Tx. History. Hx Alcohol Use: No. Hx Substance Use: Yes. Substance Use Type: Heroin. Hx Substance Use Treatment: Yes (last detox [facility]). - Substances Abused. Heroin. Route: Injection. Frequency: Daily. Amount used: 5 bags. Age of first use: 19. Date of Last Use : 05/10/18 Medical History: Asthma Psychiatric History: Patient's first psychiatric contact was at [facility] outpatient clinic in 2005 after he reported feeling anxious and sad. Patient is a transgender female to male. He is currently seeing a psychiatrist in [place] at the [facility]. States he is prescribed seroquel 200mg qhs. He was also seeing a neurologist who was prescribing patient xanac for anxiety although he reports not taking xanac for several months. Patient denies h/o suicide attempt but does report h/o self multilation behavior in 2005. Currently, he reports poor sleep. Physical/Sexual Abuse/Trauma History: denies. Mental Status Exam - Mental Status Exam Alert and Oriented to: Time, Place, Person Cognitive Function: Good Patient Appearance: Well Groomed Mood: Euthymic Patient Behavior: Cooperative Speech Pattern: Appropriate Voice Loudness: Normal Thought Process: Intact, Goal Oriented Thought Disorder: Not Present Hallucinations: Denies Suicidal Ideation: Denies Homicidal Ideation: Denies Insight/Judgement: Poor Sleep: Poorly Appetite: Fair Muscle strength/Tone: Normal Gait/Station: Normal Psychiatric Findings - Problem List ([place] 1, 2,3) (1) Opioid dependence with withdrawal Current Visit: Yes Status: Acute (2) Substance induced mood disorder Current Visit: Yes Status: Acute (3) Insomnia Current Visit: Yes Status: Acute - Initial Treatment Plan Initial Treatment Plan: Psychoeducation provided. Detoxification in progress. Will order Seroquel 150mg qhs. Benefits and side effects discussed. Verbal consent given.
[2018-05-11] MEDS ORDERED: METHADONE HCL 10 MG TABLET (FOR DETOX USE ONLY) PO ONE (10:00)
[2018-05-11 10:09] LABS: HEMATOCRIT 38.9 % (32.4-45.2); HEMOGLOBIN 12.8 GM/dL (10.7-15.3); MCH 27.6 pg (25.7-33.7); MCHC 32.8 g/dl (32.0-36.0); MEAN CELL VOLUME 84.3 fl (80-96); MEAN PLT VOLUME 8.9 fl (7.5-11.1); PLATELET COUNT 275 K/MM3 (134-434); RBC 4.62 M/mm3 (3.60-5.2); RDW 15.5 % (11.6-15.6); WHITE BLOOD COUNT 7.2 K/mm3 (4.0-10.0)
[2018-05-11 10:44] LABS: ALBUMIN 3.8 g/dl (3.4-5.0); ALK PHOS 115 U/L (45-117); ANION GAP 10 MMOL/L (8-16); BILIRUBIN,TOTAL 0.5 mg/dL (0.2-1); BLOOD UREA NITROGEN 15 mg/dL (7-18); CALCIUM 9.6 mg/dL (8.5-10.1); CHLORIDE 105 mmol/L (98-107); CO2 25 mmol/L (21-32); CREATININE 0.7 mg/dL (0.55-1.3); GLUCOSE,RANDOM 79 mg/dL (74-106); SGOT/AST 19 U/L (15-37); SGPT/ALT 50 U/L (13-61); SODIUM 140 mmol/L (136-145); TOT PROT 7.9 g/dl (6.4-8.2)
[2018-05-11] MEDS: diazePAM 5 MG TABLET PO PRN ×3 (10:46→20:39)
[2018-05-11] MEDS: NICOTINE 21 MG/24 HOURS TOPICAL PATCH TD SCH (10:46)
[2018-05-11] MEDS: PRENATAL VITAMINS W/ FOLIC ACID TABLET (FP) PO SCH (10:46)
--- NOTE | 2018-05-11 11:08 | PN ---
[facility] COWS - Scale Resting Pulse: 0= [place] 80 or Below Sweatin= Chills/Flushing Restless Observation: 1= Difficult to Sit Still Pupil Size: 1= Pupils >than Normal Bone or Joint Aches: 1= Mild Discomfort Runny Nose/ Eye Tearin= Nasal Congestion GI Upset > 30mins: 1= Stomach Cramp Tremor Observation of Outstretched Hands: 1= Tremor [place], Not Seen Yawning Observation: 1= 1-2x During Session Anxiety or Irritability: 1=Feels Anxious/Irritable Goose Flesh Skin: 3=Piloerection COWS Score: 12 BHS Progress Note (SOAP) Subjective: joints pain body aches tremor sweat hot and cold trouble sleep at night Objective: 05/11/18 11:07 Vital Signs Temperature 97.8 F 05/11/18 08:50 Pulse Rate 76 05/11/18 08:50 Respiratory Rate 18 05/11/18 08:50 Blood Pressure 111/69 05/11/18 08:50 O2 Sat by Pulse Oximetry (%) Laboratory Last Values WBC 7.2 K/mm3 (4.0-10.0) 05/11/18 06:00 RBC 4.62 M/mm3 (3.60-5.2) 05/11/18 06:00 Hgb 12.8 GM/dL (10.7-15.3) 05/11/18 06:00 Hct 38.9 % (32.4-45.2) 05/11/18 06:00 MCV 84.3 fl (80-96) 05/11/18 06:00 MCH 27.6 pg (25.7-33.7) 05/11/18 06:00 MCHC 32.8 g/dl (32.0-36.0) 05/11/18 06:00 RDW 15.5 % (11.6-15.6) D 05/11/18 06:00 Plt Count 275 K/MM3 (134-434) 05/11/18 06:00 MPV 8.9 fl (7.5-11.1) D 05/11/18 06:00 Sodium 140 mmol/L (136-145) 05/11/18 06:00 Potassium 4.0 mmol/L (3.5-5.1) 05/11/18 06:00 Chloride 105 mmol/L (98-107) 05/11/18 06:00 Carbon Dioxide 25 mmol/L (21-32) 05/11/18 06:00 Anion Gap 10 MMOL/L (8-16) 05/11/18 06:00 BUN 15 mg/dL (7-18) 05/11/18 06:00 Creatinine 0.7 mg/dL (0.55-1.3) 05/11/18 06:00 Creat Clearance w eGFR > 60 (>60) 05/11/18 06:00 Random Glucose 79 mg/dL (74-106) 05/11/18 06:00 Calcium 9.6 mg/dL (8.5-10.1) 05/11/18 06:00 Total Bilirubin 0.5 mg/dL (0.2-1) 05/11/18 06:00 AST 19 U/L (15-37) 05/11/18 06:00 ALT 50 U/L (13-61) 05/11/18 06:00 Alkaline Phosphatase 115 U/L (45-117) 05/11/18 06:00 Total Protein 7.9 g/dl (6.4-8.2) 05/11/18 06:00 Albumin 3.8 g/dl (3.4-5.0) 05/11/18 06:00 Urine Color Yellow 05/10/18 20:48 Urine Appearance Slcloudy 05/10/18 20:48 Urine pH 5.0 (5.0-8.0) D 05/10/18 20:48 Ur Specific [place] 1.020 (1.010-1.035) 05/10/18 20:48 Urine Protein Negative (NEGATIVE) 05/10/18 20:48 Urine Glucose (UA) Negative (NEGATIVE) 05/10/18 20:48 Urine Ketones Negative (NEGATIVE) 05/10/18 20:48 Urine Blood Negative (NEGATIVE) 05/10/18 20:48 Urine Nitrite Negative (NEGATIVE) 05/10/18 20:48 Urine Bilirubin Negative (<2.0 mg/dL) 05/10/18 20:48 Urine Urobilinogen Negative mg/dL (0.2-1.0) 05/10/18 20:48 Ur Leukocyte Esterase 3+ (NEGATIVE) H 05/10/18 20:48 Urine WBC (Auto) 2 /hpf (3-5) 05/10/18 20:48 Urine RBC (Auto) <1 /hpf (0-3) 05/10/18 20:48 Ur Epithelial Cells Few /HPF (FEW) 05/10/18 20:48 lab noted Assessment: 05/11/18 11:07 withdrawal sx Plan: continue detox
--- NOTE | 2018-05-11 13:18 | EKG ---
Test Reason : Blood Pressure : / mmHG Vent. Rate : 083 BPM Atrial Rate : 083 BPM P-R Int : 138 ms QRS Dur : 084 ms QT Int : 350 ms P-R-T Axes : 063 055 046 degrees QTc Int : 411 ms NORMAL SINUS RHYTHM NORMAL ECG WHEN COMPARED WITH ECG OF 22-NOV-2017 18:51, NO SIGNIFICANT CHANGE WAS FOUND Confirmed by MD JOEL, LAURA ([id number]) on 05/11/2018 1:17:41 PM Referred By: Confirmed By:LAURA MALDONADO MD
[2018-05-11] MEDS: NICOTINE POLACRILEX 4 MG GUM BC PRN (20:39)
[2018-05-11] MEDS ORDERED: QUEtiapine FUMARATE 100 MG TABLET (FP) PO SCH (22:00)
[2018-05-11] MEDS ORDERED: QUEtiapine FUMARATE 50 MG TABLET PO SCH (22:00)
[2018-05-11] MEDS: THIAMINE HCL 100 MG TABLET (FP) PO SCH (22:06)
[2018-05-12] MEDS ORDERED: METHADONE HCL 5 MG TABLET (FOR DETOX USE ONLY) PO ONE (10:00)
[2018-05-12] MEDS: PRENATAL VITAMINS W/ FOLIC ACID TABLET (FP) PO SCH (10:24)
[2018-05-12] MEDS: NICOTINE 21 MG/24 HOURS TOPICAL PATCH TD SCH (10:24)
--- NOTE | 2018-05-12 12:10 | PN ---
[facility] COWS - Scale Resting Pulse: 0= [place] 80 or Below Sweatin= Chills/Flushing Restless Observation: 1= Difficult to Sit Still Pupil Size: 1= Pupils >than Normal Bone or Joint Aches: 2= Severe Diffuse Aches Runny Nose/ Eye Tearin= Nasal Congestion GI Upset > 30mins: 1= Stomach Cramp Tremor Observation of Outstretched Hands: 1= Tremor [place], Not Seen Yawning Observation: 1= 1-2x During Session Anxiety or Irritability: 1=Feels Anxious/Irritable Goose Flesh Skin: 0=Smooth Skin COWS Score: 10 BHS Progress Note (SOAP) Subjective: body ache sweat tremor joints pain trouble sleep at night Objective: 05/12/18 12:12 Vital Signs Temperature 98.2 F 05/12/18 10:06 Pulse Rate 74 05/12/18 10:06 Respiratory Rate 18 05/12/18 10:06 Blood Pressure 100/57 L 05/12/18 10:06 O2 Sat by Pulse Oximetry (%) Laboratory Last Values WBC 7.2 K/mm3 (4.0-10.0) 05/11/18 06:00 RBC 4.62 M/mm3 (3.60-5.2) 05/11/18 06:00 Hgb 12.8 GM/dL (10.7-15.3) 05/11/18 06:00 Hct 38.9 % (32.4-45.2) 05/11/18 06:00 MCV 84.3 fl (80-96) 05/11/18 06:00 MCH 27.6 pg (25.7-33.7) 05/11/18 06:00 MCHC 32.8 g/dl (32.0-36.0) 05/11/18 06:00 RDW 15.5 % (11.6-15.6) D 05/11/18 06:00 Plt Count 275 K/MM3 (134-434) 05/11/18 06:00 MPV 8.9 fl (7.5-11.1) D 05/11/18 06:00 Sodium 140 mmol/L (136-145) 05/11/18 06:00 Potassium 4.0 mmol/L (3.5-5.1) 05/11/18 06:00 Chloride 105 mmol/L (98-107) 05/11/18 06:00 Carbon Dioxide 25 mmol/L (21-32) 05/11/18 06:00 Anion Gap 10 MMOL/L (8-16) 05/11/18 06:00 BUN 15 mg/dL (7-18) 05/11/18 06:00 Creatinine 0.7 mg/dL (0.55-1.3) 05/11/18 06:00 Creat Clearance w eGFR > 60 (>60) 05/11/18 06:00 Random Glucose 79 mg/dL (74-106) 05/11/18 06:00 Calcium 9.6 mg/dL (8.5-10.1) 05/11/18 06:00 Total Bilirubin 0.5 mg/dL (0.2-1) 05/11/18 06:00 AST 19 U/L (15-37) 05/11/18 06:00 ALT 50 U/L (13-61) 05/11/18 06:00 Alkaline Phosphatase 115 U/L (45-117) 05/11/18 06:00 Total Protein 7.9 g/dl (6.4-8.2) 05/11/18 06:00 Albumin 3.8 g/dl (3.4-5.0) 05/11/18 06:00 Urine Color Yellow 05/10/18 20:48 Urine Appearance Slcloudy 05/10/18 20:48 Urine pH 5.0 (5.0-8.0) D 05/10/18 20:48 Ur Specific [place] 1.020 (1.010-1.035) 05/10/18 20:48 Urine Protein Negative (NEGATIVE) 05/10/18 20:48 Urine Glucose (UA) Negative (NEGATIVE) 05/10/18 20:48 Urine Ketones Negative (NEGATIVE) 05/10/18 20:48 Urine Blood Negative (NEGATIVE) 05/10/18 20:48 Urine Nitrite Negative (NEGATIVE) 05/10/18 20:48 Urine Bilirubin Negative (<2.0 mg/dL) 05/10/18 20:48 Urine Urobilinogen Negative mg/dL (0.2-1.0) 05/10/18 20:48 Ur Leukocyte Esterase 3+ (NEGATIVE) H 05/10/18 20:48 Urine WBC (Auto) 2 /hpf (3-5) 05/10/18 20:48 Urine RBC (Auto) <1 /hpf (0-3) 05/10/18 20:48 Ur Epithelial Cells Few /HPF (FEW) 05/10/18 20:48 RPR Titer Nonreactive (NONREACTIVE) 05/11/18 06:00 lab noted Assessment: 05/12/18 12:13 withdrawal sx Plan: continue detox
[2018-05-12] MEDS: diazePAM 5 MG TABLET PO PRN ×3 (12:44→23:37)
--- NOTE | 2018-05-12 17:01 | PN ---
S Progress Note Note: Psychiatric nurse practitioner note: Patient reports difficulty sleeping. He is prescribed seroquel 200mg qhs but 150mg was ordered last night to reduce oversedation. Vitals signs reviewed and noted low diastolic blood pressure at 7 am and 10am. Will continue current dose of seroquel 150mg qhs. Patient encouraged to drink additional fluids. Patient also informed that melatonin 5mg is ordered for insomnia.
[2018-05-12] MEDS ORDERED: QUEtiapine FUMARATE 200 MG TABLET PO SCH (22:00)
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
[2018-05-12] MEDS: THIAMINE HCL 100 MG TABLET (FP) PO SCH (23:37)
[2018-05-12] MEDS: QUEtiapine FUMARATE 50 MG TABLET PO SCH (23:38)
--- NOTE | 2018-05-13 09:59 | PN ---
[facility] Progress Note (SOAP) Subjective: joints pain body aches sweat tremor anxiety right hand superficial skin abrasion no sign of infection denies pain full range of mottion +2 pulses skin pink warm encourage keep area clean and dry avoid irritation Objective: 05/13/18 10:01 Vital Signs Temperature 96.6 F L 05/13/18 09:28 Pulse Rate 83 05/13/18 09:28 Respiratory Rate 17 05/13/18 09:28 Blood Pressure 108/60 05/13/18 09:28 O2 Sat by Pulse Oximetry (%) Laboratory Last Values WBC 7.2 K/mm3 (4.0-10.0) 05/11/18 06:00 RBC 4.62 M/mm3 (3.60-5.2) 05/11/18 06:00 Hgb 12.8 GM/dL (10.7-15.3) 05/11/18 06:00 Hct 38.9 % (32.4-45.2) 05/11/18 06:00 MCV 84.3 fl (80-96) 05/11/18 06:00 MCH 27.6 pg (25.7-33.7) 05/11/18 06:00 MCHC 32.8 g/dl (32.0-36.0) 05/11/18 06:00 RDW 15.5 % (11.6-15.6) D 05/11/18 06:00 Plt Count 275 K/MM3 (134-434) 05/11/18 06:00 MPV 8.9 fl (7.5-11.1) D 05/11/18 06:00 Sodium 140 mmol/L (136-145) 05/11/18 06:00 Potassium 4.0 mmol/L (3.5-5.1) 05/11/18 06:00 Chloride 105 mmol/L (98-107) 05/11/18 06:00 Carbon Dioxide 25 mmol/L (21-32) 05/11/18 06:00 Anion Gap 10 MMOL/L (8-16) 05/11/18 06:00 BUN 15 mg/dL (7-18) 05/11/18 06:00 Creatinine 0.7 mg/dL (0.55-1.3) 05/11/18 06:00 Creat Clearance w eGFR > 60 (>60) 05/11/18 06:00 Random Glucose 79 mg/dL (74-106) 05/11/18 06:00 Calcium 9.6 mg/dL (8.5-10.1) 05/11/18 06:00 Total Bilirubin 0.5 mg/dL (0.2-1) 05/11/18 06:00 AST 19 U/L (15-37) 05/11/18 06:00 ALT 50 U/L (13-61) 05/11/18 06:00 Alkaline Phosphatase 115 U/L (45-117) 05/11/18 06:00 Total Protein 7.9 g/dl (6.4-8.2) 05/11/18 06:00 Albumin 3.8 g/dl (3.4-5.0) 05/11/18 06:00 Urine Color Yellow 05/10/18 20:48 Urine Appearance Slcloudy 05/10/18 20:48 Urine pH 5.0 (5.0-8.0) D 05/10/18 20:48 Ur Specific [place] 1.020 (1.010-1.035) 05/10/18 20:48 Urine Protein Negative (NEGATIVE) 05/10/18 20:48 Urine Glucose (UA) Negative (NEGATIVE) 05/10/18 20:48 Urine Ketones Negative (NEGATIVE) 05/10/18 20:48 Urine Blood Negative (NEGATIVE) 05/10/18 20:48 Urine Nitrite Negative (NEGATIVE) 05/10/18 20:48 Urine Bilirubin Negative (<2.0 mg/dL) 05/10/18 20:48 Urine Urobilinogen Negative mg/dL (0.2-1.0) 05/10/18 20:48 Ur Leukocyte Esterase 3+ (NEGATIVE) H 05/10/18 20:48 Urine WBC (Auto) 2 /hpf (3-5) 05/10/18 20:48 Urine RBC (Auto) <1 /hpf (0-3) 05/10/18 20:48 Ur Epithelial Cells Few /HPF (FEW) 05/10/18 20:48 RPR Titer Nonreactive (NONREACTIVE) 05/11/18 06:00 lab noted Assessment: 05/13/18 10:02 withdrawal sx Plan: continue detox
[2018-05-13] MEDS ORDERED: METHADONE HCL 5 MG TABLET (FOR DETOX USE ONLY) PO ONE (10:00)
[2018-05-13] MEDS: PRENATAL VITAMINS W/ FOLIC ACID TABLET (FP) PO SCH (10:56)
[2018-05-13] MEDS: BACITRACIN 0.9 GM PACKET TP SCH (10:56)
[2018-05-13] MEDS: diazePAM 5 MG TABLET PO PRN (10:57)
[2018-05-13] MEDS: NICOTINE 21 MG/24 HOURS TOPICAL PATCH TD SCH (10:59)
[2018-05-13] MEDS: NICOTINE POLACRILEX 4 MG GUM BC PRN ×2 (11:01→18:10)
[2018-05-13] MEDS: hydrOXYzine PAMOATE 50 MG CAPSULE (FP) PO PRN (18:07)
[2018-05-13] MEDS: THIAMINE HCL 100 MG TABLET (FP) PO SCH (22:07)
[2018-05-13] MEDS: QUEtiapine FUMARATE 50 MG TABLET PO SCH (22:08)
[2018-05-14] MEDS ORDERED: METHADONE HCL 10 MG TABLET (FOR DETOX USE ONLY) PO ONE (10:00)
[2018-05-14] MEDS: NICOTINE 21 MG/24 HOURS TOPICAL PATCH TD SCH (10:14)
[2018-05-14] MEDS: PRENATAL VITAMINS W/ FOLIC ACID TABLET (FP) PO SCH (10:14)
[2018-05-14] MEDS: BACITRACIN 0.9 GM PACKET TP SCH (10:15)
--- NOTE | 2018-05-14 10:23 | PN ---
[facility] Progress Note (SOAP) Subjective: irritable sweats tired Objective: 05/14/18 10:23 Vital Signs Temperature 98.3 F 05/14/18 09:14 Pulse Rate 83 05/14/18 09:14 Respiratory Rate 19 05/14/18 09:14 Blood Pressure 100/57 L 05/14/18 09:14 O2 Sat by Pulse Oximetry (%) aaox3 ambulating no acute distress Assessment: 05/14/18 11:20 mild withdrawal sx Plan: continue detox d/c in am
[2018-05-14] MEDS: QUEtiapine FUMARATE 50 MG TABLET PO SCH (22:37)
[2018-05-14] MEDS: THIAMINE HCL 100 MG TABLET (FP) PO SCH (22:38)
[2018-05-14] MEDS: hydrOXYzine PAMOATE 50 MG CAPSULE (FP) PO PRN (22:38)
[2018-05-15] MEDS ORDERED: METHADONE HCL 5 MG TABLET (FOR DETOX USE ONLY) PO ONE (06:00)
[2018-05-15 09:39] VITALS: BP 119/70; PULSE 111; TEMP 97.4
--- NOTE | 2018-05-15 12:35 | PN ---
S Progress Note (SOAP) Subjective: No new complaints Objective: 05/15/18 12:34 A & O x 3 In no acute distress Assessment: 05/15/18 12:34 Completed detox Plan: for d/c
--- NOTE | 2018-05-15 12:41 | DS ---
[facility] Detox Discharge Summary Admission Date: 05/10/18 Discharge Date: 05/15/18 - History Additional Comments: Pt being discharged home Pt will do out patient Rehab at [facility], [facility] States she does not need refill of her asthma pump or any med as she still has enough. Pertinent Past History: Female to male transgender person Asthma - Physical Exam Results Vital Signs: Vital Signs Temperature 97.4 F L 05/15/18 09:39 Pulse Rate 111 H 05/15/18 09:39 Respiratory Rate 18 05/15/18 09:39 Blood Pressure 119/70 05/15/18 09:39 O2 Sat by Pulse Oximetry (%) Pertinent Admission Physical Exam Findings: withdrawal sx - Treatment Hospital Course: Detox Protocol Followed, Rehab Referral Accepted Patient has Accepted a Rehab Referral to: OUt patient at [facility] - Medication Discharge Medications: Ambulatory Orders Albuterol Sulfate Inhaler - [Ventolin HFA Inhaler -] 1 puff IN DAILY PRN #1 inhaler 11/26/17 Quetiapine Fumarate [Seroquel -] 100 mg PO HS 05/11/18 - Diagnosis (1) Sedative, hypnotic or anxiolytic dependence with withdrawal, uncomplicated Status: Acute (2) Opioid dependence with withdrawal Status: Acute (3) Cocaine dependence, uncomplicated Status: Chronic (4) Drug-induced mood disorder Status: Chronic (5) Grpfjy-[id number]-[id number] transgender person Status: Chronic (6) Nicotine dependence Status: Acute Qualifiers: Nicotine product type: cigarettes Substance use status: uncomplicated Qualified Code(s): F17.210 - Nicotine dependence, cigarettes, uncomplicated (7) Positive PPD Status: Chronic (8) Asthma Status: Chronic (9) Anxiety Status: Chronic - AMA Did Patient Leave Against Medical Advice: No
== END 2018-05-15 09:25 | disposition home or self-care (01) | DRG 773 ==
LOC: YASAS 12:00 → Y6N 16:37
PROC: HZ2ZZZZ Detoxification Services for Substance Abuse Treatment (ICD-10-PCS; principal; 2018-05-10)
DX: F11.20 Opioid dependence, uncomplicated (principal); F13.230 Sedative, hypnotic or anxiolytic dependence with withdrawal, uncomplicated; F14.20 Cocaine dependence, uncomplicated; F17.210 Nicotine dependence, cigarettes, uncomplicated; F19.24 Other psychoactive substance dependence with psychoactive substance-induced mood disorder; F32.9 Major depressive disorder, single episode, unspecified; F41.9 Anxiety disorder, unspecified; F64.0 Transsexualism; G47.00 Insomnia, unspecified; J45.909 Unspecified asthma, uncomplicated; R76.11 Nonspecific reaction to tuberculin skin test without active tuberculosis; Z91.5 Personal history of self-harm
CPT/HCPCS: 36415; 80053; 81003; 81015; 85027; 86593; 93005; 93010

== ENCOUNTER 2018-07-04 11:58 | Inpatient (IN) | payer OTHER ==
[2018-07-04 12:21] VITALS: BMI 22.4
[2018-07-04] MEDS ORDERED: MENTHOL/PHENOL 1 EACH UD MM PRN (15:01)
[2018-07-04] MEDS ORDERED: MAG HYDROX/AL HYDROX/SIMETH 30 ML UNIT-DOSE CUP PO PRN (15:01)
[2018-07-04] MEDS ORDERED: MAGNESIUM CITRATE 300 ML BOTTLE PO PRN (15:01)
[2018-07-04] MEDS ORDERED: guaiFENesin/D-METHORPHAN HB 10 ML UNIT-DOSE CUPS PO PRN (15:01)
[2018-07-04] MEDS ORDERED: P-EPHED 60MG/TRIPROLIDI 2.5MG TABLET PO PRN (15:01)
[2018-07-04] MEDS ORDERED: LOPERAMIDE HCL 2 MG CAPSULE PO PRN (15:01)
[2018-07-04] MEDS ORDERED: MAGNESIUM HYDROX 2400MG/30ML ORAL SUSPENSION 30 ML CUP PO PRN (15:01)
[2018-07-04] MEDS ORDERED: ACETAMINOPHEN 325 MG TABLET (FP) PO PRN (15:01)
[2018-07-04] MEDS ORDERED: ALBUTEROL SO4 8 GM HFA INHALER IH PRN (15:07)
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
[2018-07-04] MEDS ORDERED: METHADONE HCL 10 MG TABLET (FOR DETOX USE ONLY) PO ONE ×2 (16:30→23:00)
[2018-07-04] MEDS: diazePAM 5 MG TABLET PO PRN ×2 (16:37→20:21)
[2018-07-04 20:19] LABS: URINE APPEARANCE TURBID; URINE BILIRUBIN NEGATIVE (<2.0 mg/dL); URINE COLOR YELLOW; URINE GLUCOSE (UA) NEGATIVE (NEGATIVE); URINE KETONE NEGATIVE (NEGATIVE); URINE LEUK ESTERASE NEGATIVE (NEGATIVE); URINE NITRITE NEGATIVE (NEGATIVE); URINE PROTEIN NEGATIVE (NEGATIVE); URINE UROBILINOGEN NEGATIVE mg/dL (0.2-1.0)
[2018-07-04] MEDS: THIAMINE HCL 100 MG TABLET (FP) PO SCH (22:31)
[2018-07-05] MEDS ORDERED: METHADONE HCL 10 MG TABLET (FOR DETOX USE ONLY) PO ONE (10:00)
[2018-07-05 10:20] LABS: HEMATOCRIT 39.4 % (32.4-45.2); HEMOGLOBIN 12.4 GM/dL (10.7-15.3); MCH 27.3 pg (25.7-33.7); MCHC 31.6 g/dl (32.0-36.0); MEAN CELL VOLUME 86.5 fl (80-96); MEAN PLT VOLUME 7.8 fl (7.5-11.1); PLATELET COUNT 343 K/MM3 (134-434); RBC 4.55 M/mm3 (3.60-5.2); RDW 14.9 % (11.6-15.6); WHITE BLOOD COUNT 7.9 K/mm3 (4.0-10.0)
[2018-07-05] MEDS: diazePAM 5 MG TABLET PO PRN ×4 (10:47→23:45)
[2018-07-05] MEDS: PRENATAL VITAMINS W/ FOLIC ACID TABLET (FP) PO SCH (10:47)
[2018-07-05] MEDS: NICOTINE 21 MG/24 HOURS TOPICAL PATCH TD SCH (10:47)
[2018-07-05 11:05] LABS: ALBUMIN 3.4 g/dl (3.4-5.0); ALK PHOS 88 U/L (45-117); ANION GAP 9 MMOL/L (8-16); BILIRUBIN,TOTAL 0.2 mg/dL (0.2-1); BLOOD UREA NITROGEN 14 mg/dL (7-18); CALCIUM 8.8 mg/dL (8.5-10.1); CHLORIDE 108 mmol/L (98-107); CO2 24 mmol/L (21-32); CREATININE 0.7 mg/dL (0.55-1.3); GLUCOSE,RANDOM 77 mg/dL (74-106); POTASSIUM 4.1 mmol/L (3.5-5.1); SGOT/AST 18 U/L (15-37); SGPT/ALT 25 U/L (13-61); SODIUM 141 mmol/L (136-145); TOT PROT 7.2 g/dl (6.4-8.2)
--- NOTE | 2018-07-05 12:09 | PN ---
BHS COWS - Scale Resting Pulse: 0= [place] 80 or Below Sweatin= Chills/Flushing Restless Observation: 1= Difficult to Sit Still Pupil Size: 1= Pupils >than Normal Bone or Joint Aches: 2= Severe Diffuse Aches Runny Nose/ Eye Tearin= Nasal Congestion GI Upset > 30mins: 2= Nausea/Diarrhea Tremor Observation of Outstretched Hands: 1= Tremor [place], Not Seen Yawning Observation: 1= 1-2x During Session Anxiety or Irritability: 1=Feels Anxious/Irritable Goose Flesh Skin: 0=Smooth Skin COWS Score: 11 S Progress Note (SOAP) Subjective: tremor body aches muscle cramping sweat restlessness Objective: 07/05/18 12:08 Vital Signs Temperature 98.1 F 07/05/18 09:23 Pulse Rate 70 07/05/18 09:23 Respiratory Rate 18 07/05/18 09:23 Blood Pressure 102/60 07/05/18 09:23 O2 Sat by Pulse Oximetry (%) Laboratory Last Values WBC 7.9 K/mm3 (4.0-10.0) 07/05/18 07:00 RBC 4.55 M/mm3 (3.60-5.2) 07/05/18 07:00 Hgb 12.4 GM/dL (10.7-15.3) 07/05/18 07:00 Hct 39.4 % (32.4-45.2) 07/05/18 07:00 MCV 86.5 fl (80-96) 07/05/18 07:00 MCH 27.3 pg (25.7-33.7) 07/05/18 07:00 MCHC 31.6 g/dl (32.0-36.0) L 07/05/18 07:00 RDW 14.9 % (11.6-15.6) 07/05/18 07:00 Plt Count 343 K/MM3 (134-434) D 07/05/18 07:00 MPV 7.8 fl (7.5-11.1) D 07/05/18 07:00 Sodium 141 mmol/L (136-145) 07/05/18 07:00 Potassium 4.1 mmol/L (3.5-5.1) 07/05/18 07:00 Chloride 108 mmol/L (98-107) H 07/05/18 07:00 Carbon Dioxide 24 mmol/L (21-32) 07/05/18 07:00 Anion Gap 9 MMOL/L (8-16) 07/05/18 07:00 BUN 14 mg/dL (7-18) 07/05/18 07:00 Creatinine 0.7 mg/dL (0.55-1.3) 07/05/18 07:00 Creat Clearance w eGFR > 60 (>60) 07/05/18 07:00 Random Glucose 77 mg/dL (74-106) 07/05/18 07:00 Calcium 8.8 mg/dL (8.5-10.1) 07/05/18 07:00 Total Bilirubin 0.2 mg/dL (0.2-1) 07/05/18 07:00 AST 18 U/L (15-37) 07/05/18 07:00 ALT 25 U/L (13-61) 07/05/18 07:00 Alkaline Phosphatase 88 U/L (45-117) 07/05/18 07:00 Total Protein 7.2 g/dl (6.4-8.2) 07/05/18 07:00 Albumin 3.4 g/dl (3.4-5.0) 07/05/18 07:00 Urine Color Yellow 07/04/18 20:09 Urine Appearance Turbid 07/04/18 20:09 Urine pH 5.0 (5.0-8.0) 07/04/18 20:09 Ur Specific [place] 1.023 (1.010-1.035) 07/04/18 20:09 Urine Protein Negative (NEGATIVE) 07/04/18 20:09 Urine Glucose (UA) Negative (NEGATIVE) 07/04/18 20:09 Urine Ketones Negative (NEGATIVE) 07/04/18 20:09 Urine Blood Negative (NEGATIVE) 07/04/18 20:09 Urine Nitrite Negative (NEGATIVE) 07/04/18 20:09 Urine Bilirubin Negative (<2.0 mg/dL) 07/04/18 20:09 Urine Urobilinogen Negative mg/dL (0.2-1.0) 07/04/18 20:09 Ur Leukocyte Esterase Negative (NEGATIVE) 07/04/18 20:09 RPR Titer Nonreactive (NONREACTIVE) 07/05/18 07:00 lab noted Assessment: 07/05/18 12:09 opiate withdrawal sx Plan: continue detox
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
[2018-07-05] MEDS ORDERED: QUEtiapine FUMARATE 50 MG TABLET PO SCH (22:00)
[2018-07-05] MEDS: THIAMINE HCL 100 MG TABLET (FP) PO SCH (22:13)
--- NOTE | 2018-07-06 09:45 | PN ---
BHS COWS - Scale Resting Pulse: 0= [place] 80 or Below Sweatin= Chills/Flushing Restless Observation: 0= Sits Still Pupil Size: 1= Pupils >than Normal Bone or Joint Aches: 1= Mild Discomfort Runny Nose/ Eye Tearin= Nasal Congestion GI Upset > 30mins: 1= Stomach Cramp Tremor Observation of Outstretched Hands: 1= Tremor [place], Not Seen Yawning Observation: 1= 1-2x During Session Anxiety or Irritability: 2=Irritable/Anxious Goose Flesh Skin: 0=Smooth Skin COWS Score: 9 BHS Progress Note (SOAP) Subjective: patient requests to follow up with the psychiatrist for psychotropic medication adjustment body aches restlessness anxiety muscle cramping trouble sleep at night Objective: 07/06/18 12:40 Vital Signs Temperature 97.6 F 07/06/18 09:36 Pulse Rate 101 H 07/06/18 09:36 Respiratory Rate 18 07/06/18 09:36 Blood Pressure 96/55 L 07/06/18 09:36 O2 Sat by Pulse Oximetry (%) Laboratory Last Values WBC 7.9 K/mm3 (4.0-10.0) 07/05/18 07:00 RBC 4.55 M/mm3 (3.60-5.2) 07/05/18 07:00 Hgb 12.4 GM/dL (10.7-15.3) 07/05/18 07:00 Hct 39.4 % (32.4-45.2) 07/05/18 07:00 MCV 86.5 fl (80-96) 07/05/18 07:00 MCH 27.3 pg (25.7-33.7) 07/05/18 07:00 MCHC 31.6 g/dl (32.0-36.0) L 07/05/18 07:00 RDW 14.9 % (11.6-15.6) 07/05/18 07:00 Plt Count 343 K/MM3 (134-434) D 07/05/18 07:00 MPV 7.8 fl (7.5-11.1) D 07/05/18 07:00 Sodium 141 mmol/L (136-145) 07/05/18 07:00 Potassium 4.1 mmol/L (3.5-5.1) 07/05/18 07:00 Chloride 108 mmol/L (98-107) H 07/05/18 07:00 Carbon Dioxide 24 mmol/L (21-32) 07/05/18 07:00 Anion Gap 9 MMOL/L (8-16) 07/05/18 07:00 BUN 14 mg/dL (7-18) 07/05/18 07:00 Creatinine 0.7 mg/dL (0.55-1.3) 07/05/18 07:00 Creat Clearance w eGFR > 60 (>60) 07/05/18 07:00 Random Glucose 77 mg/dL (74-106) 07/05/18 07:00 Calcium 8.8 mg/dL (8.5-10.1) 07/05/18 07:00 Total Bilirubin 0.2 mg/dL (0.2-1) 07/05/18 07:00 AST 18 U/L (15-37) 07/05/18 07:00 ALT 25 U/L (13-61) 07/05/18 07:00 Alkaline Phosphatase 88 U/L (45-117) 07/05/18 07:00 Total Protein 7.2 g/dl (6.4-8.2) 07/05/18 07:00 Albumin 3.4 g/dl (3.4-5.0) 07/05/18 07:00 Urine Color Yellow 07/04/18 20:09 Urine Appearance Turbid 07/04/18 20:09 Urine pH 5.0 (5.0-8.0) 07/04/18 20:09 Ur Specific [place] 1.023 (1.010-1.035) 07/04/18 20:09 Urine Protein Negative (NEGATIVE) 07/04/18 20:09 Urine Glucose (UA) Negative (NEGATIVE) 07/04/18 20:09 Urine Ketones Negative (NEGATIVE) 07/04/18 20:09 Urine Blood Negative (NEGATIVE) 07/04/18 20: Urine Nitrite Negative (NEGATIVE) 07/04/18 20:09 Urine Bilirubin Negative (<2.0 mg/dL) 07/04/18 20:09 Urine Urobilinogen Negative mg/dL (0.2-1.0) 07/04/18 20:09 Ur Leukocyte Esterase Negative (NEGATIVE) 12/09/18 20:09 RPR Titer Nonreactive (NONREACTIVE) 07/05/18 07:00 lab noted Assessment: 07/06/18 12:40 withdrawal sx psychotropic medication adjustment Plan: continue detox psychiatrist referral
[2018-07-06] MEDS ORDERED: METHADONE HCL 5 MG TABLET (FOR DETOX USE ONLY) PO ONE (10:00)
[2018-07-06] MEDS: PRENATAL VITAMINS W/ FOLIC ACID TABLET (FP) PO SCH (10:34)
[2018-07-06] MEDS: diazePAM 5 MG TABLET PO PRN ×3 (10:34→20:10)
[2018-07-06] MEDS: NICOTINE 21 MG/24 HOURS TOPICAL PATCH TD SCH (10:37)
--- NOTE | 2018-07-06 15:13 | PN ---
Psychiatric Progress Note Vital Signs: Vital Signs Period Temp Pulse Resp BP Sys/Cortes Pulse Ox Last 24 Hr 97.0 F-98.8 F 74-103 17-18 89-109/51-67 Date of Session: 07/06/18 Chief Complaint:: " I need more seroquel for my insomnia ". HPI: Asked to see this patient for titration of seroquel. Patient complains that seroquel at 50 mg/hs is " not working ". Requests increase to 100 mg at bedtime. ROS: Unremarkable. Current Medications: Active Medications Generic Name Dose Route Start Last Admin Trade Name Freq PRN Reason Stop Dose Admin Acetaminophen 650 mg 07/04/18 15:01 Tylenol - PO Q4H PRN FEVER Al Hydroxide/Mg Hydroxide 30 ml 07/04/18 15:01 Mylanta Oral Suspension - PO Q6H PRN DYSPEPSIA Albuterol Sulfate 2 puff 07/04/18 15:07 Ventolin Hfa Inhaler - IH Q4H PRN ASTHMA Diazepam 10 mg 07/04/18 15:05 07/06/18 14:35 Valium - PO 07/07/18 15:04 10 mg Q4H PRN Administration WITHDRAWAL(CONT SUBST) Eucalyptus/Menthol/Phenol/Sorbitol 1 each 07/04/18 15:01 Cepastat Lozenge - MM Q4H PRN SORE THROAT Guaifenesin 10 ml 07/04/18 15:01 Robitussin Dm - PO Q6H PRN COUGH Hydroxyzine Pamoate 50 mg 07/04/18 15:01 Vistaril - PO Q4H PRN AGITATION Ibuprofen 400 mg 07/04/18 15:01 Motrin - PO Q6H PRN PAIN LEVEL 4-6 Loperamide HCl 4 mg 07/04/18 15:01 Imodium - PO Q6H PRN DIARRHEA Magnesium Citrate 300 ml 07/04/18 15:01 Citroma - PO Q48H PRN CONSTIPATION Magnesium Hydroxide 30 ml 07/04/18 15:01 Milk Of Magnesia - PO DAILY PRN CONSTIPATION Melatonin 5 mg 07/04/18 22:00 Melatonin PO HS PRN INSOMNIA Methadone HCl 5 mg 07/09/18 06:00 Dolophine - PO 07/09/18 06:01 ONCE@0600 ONE Methadone HCl 15 mg 07/07/18 10:00 Dolophine - PO 07/07/18 10:01 ONCE ONE Methadone HCl 10 mg 07/08/18 10:00 Dolophine - PO 07/08/18 10:01 ONCE ONE Nicotine 21 mg 07/05/18 10:00 07/06/18 10:37 Nicoderm Patch - TD 21 mg DAILY JAYJAY Administration Multivit/Folic Acid/Iron 1 tab 07/05/18 10:00 07/06/18 10:34 Vitamins (Sjr) - PO 1 tab DAILY JAYJAY Administration Pseudoephedrine/Triprolidine 1 combo 07/04/18 15:01 Actifed - PO TID PRN NASAL CONGESTION Quetiapine Fumarate 100 mg 07/06/18 22:00 Seroquel - PO HS JAYJAY Thiamine HCl 100 mg 07/04/18 22:00 07/05/18 22:13 Vitamin B1 - PO 100 mg HS JAYJAY Administration Medication(s) Change(s): Seroquel is raised to 100 mg po hs with patient's consent. Current Side Effect: No Lab tests ordered: No Lab tests reviewed: Yes Provider note:: Met with the patient. Doing fine with the exception of complaint of insomnia. Patient argues that he does better on 100 mg of seroquel at HS. Observed ambulating on the unit. Steady gait. Relaxed and cooperative. Well groomed. Appears rested. Stable mental status. Total face to face time:: 25 Mental Status Exam - Mental Status Exam Alert and Oriented to: Time, Place, Person Cognitive Function: Good Patient Appearance: Well Groomed Mood: Euthymic Affect: Appropriate, Normal Range Patient Behavior: Appropriate, Cooperative Speech Pattern: Clear Voice Loudness: Normal Thought Process: Intact, Goal Oriented Thought Disorder: Not Present Hallucinations: Denies Suicidal Ideation: Denies Homicidal Ideation: Denies Insight/Judgement: Fair Sleep: Poorly, Difficulty falling asleep Appetite: Good Muscle strength/Tone: Normal Gait/Station: Normal Psychiatric Treatment Plan - Problem List (1) Opioid dependence with withdrawal Current Visit: Yes Comment: . (2) Nicotine dependence Current Visit: Yes Qualifiers: Nicotine product type: cigarettes Substance use status: uncomplicated Qualified Code(s): F17.210 - Nicotine dependence, cigarettes, uncomplicated Comment: . (3) Substance induced mood disorder Current Visit: Yes Comment: . (4) Insomnia Current Visit: Yes Comment: .
[2018-07-06] MEDS: QUEtiapine FUMARATE 100 MG TABLET (FP) PO SCH (22:06)
[2018-07-06] MEDS: THIAMINE HCL 100 MG TABLET (FP) PO SCH (22:06)
[2018-07-07] MEDS: PRENATAL VITAMINS W/ FOLIC ACID TABLET (FP) PO SCH (09:56)
[2018-07-07] MEDS: diazePAM 5 MG TABLET PO PRN ×2 (09:56→14:34)
[2018-07-07] MEDS: NICOTINE 21 MG/24 HOURS TOPICAL PATCH TD SCH (09:57)
[2018-07-07] MEDS ORDERED: METHADONE HCL 5 MG TABLET (FOR DETOX USE ONLY) PO ONE (10:00)
--- NOTE | 2018-07-07 13:07 | PN ---
BHS Progress Note (SOAP) Subjective: body aches joints pain restlessness slept throughout the night Objective: 07/07/18 13:06 Vital Signs Temperature 98.0 F 07/07/18 09:30 Pulse Rate 87 07/07/18 09:30 Respiratory Rate 18 07/07/18 09:30 Blood Pressure 103/61 07/07/18 09:30 O2 Sat by Pulse Oximetry (%) Laboratory Last Values WBC 7.9 K/mm3 (4.0-10.0) 07/05/18 07:00 RBC 4.55 M/mm3 (3.60-5.2) 07/05/18 07:00 Hgb 12.4 GM/dL (10.7-15.3) 07/05/18 07:00 Hct 39.4 % (32.4-45.2) 07/05/18 07:00 MCV 86.5 fl (80-96) 07/05/18 07:00 MCH 27.3 pg (25.7-33.7) 07/05/18 07:00 MCHC 31.6 g/dl (32.0-36.0) L 07/05/18 07:00 RDW 14.9 % (11.6-15.6) 07/05/18 07:00 Plt Count 343 K/MM3 (134-434) D 07/05/18 07:00 MPV 7.8 fl (7.5-11.1) D 07/05/18 07:00 Sodium 141 mmol/L (136-145) 07/05/18 07:00 Potassium 4.1 mmol/L (3.5-5.1) 07/05/18 07:00 Chloride 108 mmol/L (98-107) H 07/05/18 07:00 Carbon Dioxide 24 mmol/L (21-32) 07/05/18 07:00 Anion Gap 9 MMOL/L (8-16) 07/05/18 07:00 BUN 14 mg/dL (7-18) 07/05/18 07:00 Creatinine 0.7 mg/dL (0.55-1.3) 07/05/18 07:00 Creat Clearance w eGFR > 60 (>60) 07/05/18 07:00 Random Glucose 77 mg/dL (74-106) 07/05/18 07:00 Calcium 8.8 mg/dL (8.5-10.1) 07/05/18 07:00 Total Bilirubin 0.2 mg/dL (0.2-1) 07/05/18 07:00 AST 18 U/L (15-37) 07/05/18 07:00 ALT 25 U/L (13-61) 07/05/18 07:00 Alkaline Phosphatase 88 U/L (45-117) 07/05/18 07:00 Total Protein 7.2 g/dl (6.4-8.2) 07/05/18 07:00 Albumin 3.4 g/dl (3.4-5.0) 07/05/18 07:00 Urine Color Yellow 07/04/18 20:09 Urine Appearance Turbid 07/04/18 20:09 Urine pH 5.0 (5.0-8.0) 07/04/18 20:09 Ur Specific [place] 1.023 (1.010-1.035) 07/04/18 20:09 Urine Protein Negative (NEGATIVE) 07/04/18 20:09 Urine Glucose (UA) Negative (NEGATIVE) 07/04/18 20:09 Urine Ketones Negative (NEGATIVE) 07/04/18 20:09 Urine Blood Negative (NEGATIVE) 07/04/18 20:09 Urine Nitrite Negative (NEGATIVE) 07/04/18 20:09 Urine Bilirubin Negative (<2.0 mg/dL) 07/04/18 20:09 Urine Urobilinogen Negative mg/dL (0.2-1.0) 07/04/18 20:09 Ur Leukocyte Esterase Negative (NEGATIVE) 07/04/18 20:09 RPR Titer Nonreactive (NONREACTIVE) 07/05/18 07:00 lab noted Assessment: 07/07/18 13:06 withdrawal sx Plan: continue detox
[2018-07-07] MEDS: hydrOXYzine PAMOATE 50 MG CAPSULE (FP) PO PRN (17:23)
[2018-07-07] MEDS: IBUPROFEN 400 MG TABLET (FP) PO PRN (21:19)
[2018-07-07] MEDS: QUEtiapine FUMARATE 100 MG TABLET (FP) PO SCH (22:09)
[2018-07-07] MEDS: MELATONIN 5 MG TABLETS PO PRN (22:09)
[2018-07-07] MEDS: THIAMINE HCL 100 MG TABLET (FP) PO SCH (22:09)
[2018-07-08] MEDS ORDERED: METHADONE HCL 10 MG TABLET (FOR DETOX USE ONLY) PO ONE (10:00)
[2018-07-08] MEDS: hydrOXYzine PAMOATE 50 MG CAPSULE (FP) PO PRN ×2 (10:39→17:19)
[2018-07-08] MEDS: PRENATAL VITAMINS W/ FOLIC ACID TABLET (FP) PO SCH (10:39)
[2018-07-08] MEDS: NICOTINE 21 MG/24 HOURS TOPICAL PATCH TD SCH (10:40)
--- NOTE | 2018-07-08 15:54 | PN ---
BHS Progress Note (SOAP) Subjective: feeling better no tremor no body ache less sweat mild gi distress Objective: 07/08/18 15:57 Vital Signs Temperature 96.7 F L 07/08/18 13:30 Pulse Rate 99 H 07/08/18 13:30 Respiratory Rate 17 07/08/18 13:30 Blood Pressure 119/62 07/08/18 13:30 O2 Sat by Pulse Oximetry (%) Laboratory Last Values WBC 7.9 K/mm3 (4.0-10.0) 07/05/18 07:00 RBC 4.55 M/mm3 (3.60-5.2) 07/05/18 07:00 Hgb 12.4 GM/dL (10.7-15.3) 07/05/18 07:00 Hct 39.4 % (32.4-45.2) 07/05/18 07:00 MCV 86.5 fl (80-96) 07/05/18 07:00 MCH 27.3 pg (25.7-33.7) 07/05/18 07:00 MCHC 31.6 g/dl (32.0-36.0) L 07/05/18 07:00 RDW 14.9 % (11.6-15.6) 07/05/18 07:00 Plt Count 343 K/MM3 (134-434) D 07/05/18 07:00 MPV 7.8 fl (7.5-11.1) D 07/05/18 07:00 Sodium 141 mmol/L (136-145) 07/05/18 07:00 Potassium 4.1 mmol/L (3.5-5.1) 07/05/18 07:00 Chloride 108 mmol/L (98-107) H 07/05/18 07:00 Carbon Dioxide 24 mmol/L (21-32) 07/05/18 07:00 Anion Gap 9 MMOL/L (8-16) 07/05/18 07:00 BUN 14 mg/dL (7-18) 07/05/18 07:00 Creatinine 0.7 mg/dL (0.55-1.3) 07/05/18 07:00 Creat Clearance w eGFR > 60 (>60) 07/05/18 07:00 Random Glucose 77 mg/dL (74-106) 07/05/18 07:00 Calcium 8.8 mg/dL (8.5-10.1) 07/05/18 07:00 Total Bilirubin 0.2 mg/dL (0.2-1) 07/05/18 07:00 AST 18 U/L (15-37) 07/05/18 07:00 ALT 25 U/L (13-61) 07/05/18 07:00 Alkaline Phosphatase 88 U/L (45-117) 07/05/18 07:00 Total Protein 7.2 g/dl (6.4-8.2) 07/05/18 07:00 Albumin 3.4 g/dl (3.4-5.0) 07/05/18 07:00 Urine Color Yellow 07/04/18 20:09 Urine Appearance Turbid 07/04/18 20:09 Urine pH 5.0 (5.0-8.0) 07/04/18 20:09 Ur Specific [place] 1.023 (1.010-1.035) 07/04/18 20:09 Urine Protein Negative (NEGATIVE) 07/04/18 20:09 Urine Glucose (UA) Negative (NEGATIVE) 07/04/18 20:09 Urine Ketones Negative (NEGATIVE) 07/04/18 20:09 Urine Blood Negative (NEGATIVE) 07/04/18 20:09 Urine Nitrite Negative (NEGATIVE) 07/04/18 20:09 Urine Bilirubin Negative (<2.0 mg/dL) 07/04/18 20:09 Urine Urobilinogen Negative mg/dL (0.2-1.0) 07/04/18 20:09 Ur Leukocyte Esterase Negative (NEGATIVE) 07/04/18 20:09 RPR Titer Nonreactive (NONREACTIVE) 07/05/18 07:00 lab noted Assessment: 07/08/18 15:57 mild withdrawal mild gi distress Plan: medically supervised detox
[2018-07-08] MEDS: IBUPROFEN 400 MG TABLET (FP) PO PRN (17:18)
[2018-07-08] MEDS: QUEtiapine FUMARATE 100 MG TABLET (FP) PO SCH (22:07)
[2018-07-08] MEDS: MELATONIN 5 MG TABLETS PO PRN (22:07)
[2018-07-08] MEDS: THIAMINE HCL 100 MG TABLET (FP) PO SCH (22:07)
[2018-07-09] MEDS ORDERED: METHADONE HCL 5 MG TABLET (FOR DETOX USE ONLY) PO ONE (06:00)
[2018-07-09] MEDS: hydrOXYzine PAMOATE 50 MG CAPSULE (FP) PO PRN (06:05)
[2018-07-09 06:20] VITALS: BP 104/57; PULSE 80; TEMP 97.4
--- NOTE | 2018-07-09 09:58 | PN ---
BHS Progress Note (SOAP) Subjective: I' M better today Objective: 07/09/18 09:59 Vital Signs Temperature 97.4 F L 07/09/18 06:19 Pulse Rate 80 07/09/18 06:19 Respiratory Rate 18 07/09/18 06:19 Blood Pressure 104/57 L 07/09/18 06:19 O2 Sat by Pulse Oximetry (%) Laboratory Tests 07/04/18 07/05/18 07/05/18 20:09 07:00 07:00 WBC 7.9 RBC 4.55 Hgb 12.4 Hct 39.4 MCV 86.5 MCH 27.3 MCHC 31.6 L RDW 14.9 Plt Count 343 D MPV 7.8 D Sodium 141 Potassium 4.1 Chloride 108 H Carbon Dioxide 24 Anion Gap 9 BUN 14 Creatinine 0.7 Creat Clearance w eGFR > 60 Random Glucose 77 Calcium 8.8 Total Bilirubin 0.2 AST 18 ALT 25 Alkaline Phosphatase 88 Total Protein 7.2 Albumin 3.4 Urine Color Yellow Urine Appearance Turbid Urine pH 5.0 Ur Specific [place] 1.023 Urine Protein Negative Urine Glucose (UA) Negative Urine Ketones Negative Urine Blood Negative Urine Nitrite Negative Urine Bilirubin Negative Urine Urobilinogen Negative Ur Leukocyte Esterase Negative RPR Titer 07/05/18 07:00 WBC RBC Hgb Hct MCV MCH MCHC RDW Plt Count MPV Sodium Potassium Chloride Carbon Dioxide Anion Gap BUN Creatinine Creat Clearance w eGFR Random Glucose Calcium Total Bilirubin AST ALT Alkaline Phosphatase Total Protein Albumin Urine Color Urine Appearance Urine pH Ur Specific [place] Urine Protein Urine Glucose (UA) Urine Ketones Urine Blood Urine Nitrite Urine Bilirubin Urine Urobilinogen Ur Leukocyte Esterase RPR Titer Nonreactive pt aox3 in nad ambulating Assessment: 07/09/18 10:00 detox completed Plan: d/c home cont. hydration
--- NOTE | 2018-07-09 10:03 | DS ---
[facility] Detox Discharge Summary Admission Date: 07/04/18 Discharge Date: 07/09/18 - History Present History: Opioid Dependence, Sedative Dependence - Physical Exam Results Vital Signs: Vital Signs Temperature 97.4 F L 07/09/18 06:19 Pulse Rate 80 07/09/18 06:19 Respiratory Rate 18 07/09/18 06:19 Blood Pressure 104/57 L 07/09/18 06:19 O2 Sat by Pulse Oximetry (%) - Treatment Hospital Course: Detox Protocol Followed, Detoxed Safely, Responded well, Discharged Condition Good - Medication Discharge Medications: Ambulatory Orders Quetiapine Fumarate [Seroquel -] 200 mg PO HS 05/11/18 Quetiapine Fumarate [Seroquel -] 50 mg PO TID 07/04/18 Albuterol Sulfate Inhaler - [Ventolin HFA Inhaler -] 1 puff IN DAILY PRN #1 inhaler 07/08/18 - Diagnosis (1) Nicotine dependence Status: Chronic Qualifiers: Nicotine product type: cigarettes Substance use status: uncomplicated Qualified Code(s): F17.210 - Nicotine dependence, cigarettes, uncomplicated (2) Opioid dependence with withdrawal Status: Chronic (3) Sedative, hypnotic or anxiolytic dependence with withdrawal, uncomplicated Status: Chronic (4) Anxiety Status: Chronic (5) Asthma Status: Chronic Qualifiers: Asthma severity: mild Asthma persistence: intermittent Asthma complication type: uncomplicated Qualified Code(s): J45.20 - Mild intermittent asthma, uncomplicated (6) Cocaine dependence, uncomplicated Status: Chronic (7) [id number] transgender person Status: Chronic - AMA Did Patient Leave Against Medical Advice: No
== END 2018-07-09 06:35 | disposition home or self-care (01) | DRG 773 ==
LOC: YASAS 11:58 → Y3N 15:50
PROC: HZ2ZZZZ Detoxification Services for Substance Abuse Treatment (ICD-10-PCS; principal; 2018-07-04)
DX: F11.23 Opioid dependence with withdrawal (principal); F13.230 Sedative, hypnotic or anxiolytic dependence with withdrawal, uncomplicated; F14.20 Cocaine dependence, uncomplicated; F17.210 Nicotine dependence, cigarettes, uncomplicated; F19.24 Other psychoactive substance dependence with psychoactive substance-induced mood disorder; F41.9 Anxiety disorder, unspecified; F64.0 Transsexualism; J45.20 Mild intermittent asthma, uncomplicated; G47.00 Insomnia, unspecified; R76.11 Nonspecific reaction to tuberculin skin test without active tuberculosis; Z91.5 Personal history of self-harm
CPT/HCPCS: 36415; 80053; 81003; 85027; 86593

== ENCOUNTER 2019-06-14 12:43 | Inpatient (IN) | payer OTHER ==
[2019-06-14 14:58] VITALS: BMI 21.0
--- NOTE | 2019-06-14 16:16 | PN ---
"Teaching Attending Note Name of Resident: Yuki Mckeon ATTENDING PHYSICIAN STATEMENT I saw and evaluated the patient. I reviewed the resident's note and discussed the case with the resident. I agree with the resident's findings and plan as documented. SUBJECTIVE:pt here requesting detox from opiate use , rpeorts 7 bags heroin IV in jeff UE and neck , latest use yesterday , + OD x 10 most recently 1 mo ago no Narcan used , denies abscess . cocaine : intermittent use . pmhx : asthma pt reports he identifies as TG , F2M , latest rx as below, reports he had insurance authorization issues . LMP > 1 yr ago OBJECTIVE: wnwd , moderate distress QTc 05/10/2018 : 411 ms. This report was requested by: Opal Fernandez | Reference #: [id number] Others' Prescriptions Patient Name: Zaida James Date: 1995 Address: [address] [place] [id number] Sex: Female Rx Written Rx Dispensed Drug Quantity Days Supply Prescriber Name 04/14/2019 04/14/2019 testosterone cyp 200 mg/ml 2ml 28 [place] , Sera 01/06/2019 01/07/2019 testosterone cyp 200 mg/ml 2ml 28 [place] , Sera 11/25/2018 11/27/2018 testosterone cyp 200 mg/ml 2ml 28 [place] , Sera 09/29/2018 10/14/2018 testosterone cyp 200 mg/ml 2ml 28 Veronica Bowens Patient Name: Zaida James Date: 1995 Address: [address] [place] [id number] Sex: Female Rx Written Rx Dispensed Drug Quantity Days Supply Prescriber Name 09/13/2018 09/14/2018 testosterone cyp 200 mg/ml 4 4 Yazan Malagon MD 07/17/2018 08/07/2018 chlordiazepoxide 25 mg capsule 26 5 Morales Swenson Vital Signs - 24 hr 06/14/19 14:49 Temperature 98.1 F Pulse Rate 102 H Respiratory 18 Rate Blood Pressure 116/70 ASSESSMENT AND PLAN: OUD - Methadone detox"
--- NOTE | 2019-06-14 16:38 | HP ---
COWS - Scale Resting Pulse: 2= [place] 101-120 Sweatin= No chills or Flushing Restless Observation: 1= Difficult to Sit Still Pupil Size: 0= Normal to Room Light Bone or Joint Aches: 0= None Runny Nose/ Eye Tearin= Runny Nose/Eyes GI Upset > 30mins: 1= Stomach Cramp Tremor Observation: 0= None Yawning Observation: 0= None Anxiety or Irritability: 1=Feels Anxious/Irritable Goose Flesh Skin: 0=Smooth Skin COWS Score: 7 CIWA Score - Admission Criteria OASAS Guidelines: Admission for Medically Managed Detox: Requires at least one of the followin. CIWA greater than 12 2. Seizures within the past 24 hours 3. Delirium tremens within the past 24 hours 4. Hallucinations within the past 24 hours 5. Acute intervention needed for co occurring medical disorder 6. Acute intervention needed for co occurring psychiatric disorder 7. Severe withdrawal that cannot be handled at a lower level of care (continued vomiting, continued diarrhea, abnormal vital signs) requiring intravenous medication and/or fluids 8. Admitting History and Physical - Past Medical History ...LMP: 10/26/17 - Smoking History Smoking history: Current every day smoker Have you smoked in the past 12 months: Yes Aproximately how many cigarettes per day: 10 - Alcohol/Substance Use Hx Alcohol Use: No Admission [facility] Allergies/Adverse Reactions: Allergies Allergy/AdvReac Type Severity Reaction Status Date / Time No Known Allergies Allergy Verified 06/14/19 14:49 History of Present Illness: 24 y/o transitioning from F to male (on testosterone injections) with history of heroin (DOC) and marijuana abuse (occasional cocaine) presenting to [facility] for detox. Pt started using oxycodone initially then switched to heroin injection as it was cheaper. Pt injects about 7 bags a day on and off for the past 5 years. with last use being yesterday in the right lateral neck after failing arm access. He injects in his arms mostly but sometimes uses leg and neck. Pt overdosed about 10 time in the past with the last episode being last month. He endorsed being hospitalized after a couple of the overdose episodes and being narcan 4x. Pt also admits to smoking marijuana every other day for the last 10 yrs. Pt admits to feeling tired,having headache, abdominal pain and runny nose but denies any nausea, vomiting, palpitations, chest pain, SOB or any focal neurological deficit. Pt went to short term rehab last may at [facility]. Pt explains that on the very same day of discharge, he used again and has been ever since. pt endorses 20 lbs weight loss due to loss of appetite from use. PMH: Asthma (on albuterol) last attack in 2012 since he stopped smoking as heavy as he used to (1PPD ), alopecia (use to receive injections now uses a shampoo from [facility]) Psych Hx: anxiety used to take xanax but no longer due to side effects and some depression in the past PSH Hx: none Social Hx: cigarette use of about 5 a day now no alcohol abuse. just social drinker PE: COWS 7 in PEX remarkable for tenderness injection site in right neck and anticubitus and tachycardia plan : methadone detox - Ebola screening Have you traveled outside of the country in the last 21 days: No Have you had contact with anyone from an Ebola affected area: No Do you have a fever: No Patient History - Patient Medical History Hx Anemia: No Hx Asthma: Yes Hx Chronic Obstructive Pulmonary Disease (COPD): No Hx Cancer: No Hx Cardiac Disorders: No Hx Congestive Heart Failure: No Hx Hypertension: No Hx Hypercholesterolemia: No Hx Pacemaker: No HX Cerebrovascular Accident: No Hx Seizures: No Hx Dementia: No Hx Diabetes: No Hx Gastrointestinal Disorders: No Hx Liver Disease: No Hx Genitourinary Disorders: No Hx Sexually Transmitted Disorders: No Hx Renal Disease (ESRD): No Hx Thyroid Disease: No Hx Human Immunodeficiency Virus (HIV): No (last 2015 negative ) Hx Hepatitis C: No (negative) Hx Depression: Yes Hx Suicide Attempt: Yes (Pt tried to cut self in 2006.) Hx Bipolar Disorder: No Hx Schizophrenia: No - Patient Surgical History Past Surgical History: No Hx Neurologic Surgery: No Hx Cataract Extraction: No Hx Cardiac Surgery: No Hx Lung Surgery: No Hx Breast Surgery: No Hx Breast Biopsy: No Hx Abdominal Surgery: No Hx Appendectomy: No Hx Cholecystectomy: No Hx Genitourinary Surgery: No Hx Section: No Hx Orthopedic Surgery: No Anesthesia Reaction: No - PPD History Date: 08/15/16 Results: negative - Reproductive History Last Menstrual Period: 10/26/17 - Smoking Cessation Smoking history: Current every day smoker Have you smoked in the past 12 months: Yes Aproximately how many cigarettes per day: 10 Cigars Per Day: 0 Hx Chewing Tobacco Use: No Initiated information on smoking cessation: Yes 'Breaking Loose' booklet given: 06/14/19 - Substances abused Alprazolam (Xanax) Substance route: Oral Frequency: 1-2 times per week Amount used: 1 tab Age of first use: 15 Date of last use: 06/12/19 Marijuana/Hashish Substance route: Smoking Frequency: Daily Amount used: 1 blunt Age of first use: 13 Date of last use: 06/14/19 Heroin Substance route: Injection Frequency: Daily Amount used: $50 Age of first use: 19 Date of last use: 06/14/19 Cocaine Substance route: Injection Frequency: 1-3 times last 30 days Amount used: $40 Age of first use: 14 Date of last use: 06/11/19 Admission Physical Exam BHS - Vital Signs Vital Signs: Vital Signs - 24 hr 06/14/19 14:49 Temperature 98.1 F Pulse Rate 102 H Respiratory 18 Rate Blood Pressure 116/70 - Physical General Appearance: Yes: Within Normal Limits HEENTM: Yes: Within Normal Limits Respiratory: Yes: Within Normal Limits Neck: Yes: Other (tenderness in the right neck injection site) Breast: Yes: Breast Exam Deferred Cardiology: Yes: Within Normal Limits, Tachycardia Abdominal: Yes: Within Normal Limits Extremities: Yes: Within Normal Limits Neurological: Yes: Within Normal Limits Integumentary: Yes: Other (scars from injection sites in the arms) Urine Drug Screen - Test Device Lot number: [id number] Expiration date: 02/23/21 - Control Is test valid?: Yes - Results Drug screen NEGATIVE: No Urine drug screen results: THC-Marijuana, JEANNETTE-Cocaine, FEN-Fentanyl, MOP-Opiates Inpatient Rehab Admission - Rehab Decision to Admit Inpatient rehab admission?: No
[2019-06-14] MEDS ORDERED: ALBUTEROL SO4 8 GM HFA INHALER IH PRN (17:05)
[2019-06-14] MEDS ORDERED: MELATONIN 5 MG TABLETS PO PRN (17:21)
[2019-06-14] MEDS ORDERED: MAG HYDROX/AL HYDROX/SIMETH 30 ML UNIT-DOSE CUP PO PRN (17:21)
[2019-06-14] MEDS ORDERED: MENTHOL/PHENOL 1 EACH UD MM PRN (17:21)
[2019-06-14] MEDS ORDERED: MAGNESIUM CITRATE 300 ML BOTTLE PO PRN (17:21)
[2019-06-14] MEDS ORDERED: IBUPROFEN 400 MG TABLET (FP) PO PRN (17:21)
[2019-06-14] MEDS ORDERED: MAGNESIUM HYDROX 2400MG/30ML ORAL SUSPENSION 30 ML CUP PO PRN (17:21)
[2019-06-14] MEDS ORDERED: ACETAMINOPHEN 325 MG TABLET (FP) PO PRN ×2 (17:21)
[2019-06-14] MEDS ORDERED: BISMUTH SUBSALICYLATE 524 MG/30 ML UD PO PRN (17:21)
[2019-06-14] MEDS ORDERED: hydrOXYzine PAMOATE 25 MG CAPSULE (FP) PO PRN (17:21)
[2019-06-14] MEDS ORDERED: cloNIDine HCL 0.1 MG TABLET PO PRN (17:22)
[2019-06-14] MEDS ORDERED: METHADONE HCL 10 MG TABLET (FOR DETOX USE ONLY) PO ONE (18:00)
[2019-06-14] MEDS: THIAMINE HCL 100 MG TABLET (FP) PO SCH (22:19)
--- NOTE | 2019-06-15 09:33 | PN ---
BHS COWS - Scale Resting Pulse: 0= [place] 80 or Below Sweatin= Chills/Flushing Restless Observation: 0= Sits Still Pupil Size: 1= Pupils >than Normal Bone or Joint Aches: 1= Mild Discomfort Runny Nose/ Eye Tearin= None GI Upset > 30mins: 2= Nausea/Diarrhea Tremor Observation of Outstretched Hands: 1= Tremor [place], Not Seen Yawning Observation: 0= None Anxiety or Irritability: 2=Irritable/Anxious Goose Flesh Skin: 3=Piloerection COWS Score: 11 [facility] Progress Note (SOAP) Subjective: 24 years old female admitted on 06/14/19 for opiate withdrawal sx management treated with methadone detox regimen ate breakfast feeling tired resting on bed limited conversation with staff Objective: 06/15/19 09:32 Vital Signs Temperature 97.5 F L 06/15/19 09:14 Pulse Rate 76 06/15/19 09:14 Respiratory Rate 18 06/15/19 09:14 Blood Pressure 104/61 06/15/19 09:14 O2 Sat by Pulse Oximetry (%) 06/15/19 09:33 lab pending Assessment: 06/15/19 09:33 opiate withdrawal sx Plan: continue methadone detox regimen
[2019-06-15] MEDS ORDERED: METHADONE HCL 5 MG TABLET (FOR DETOX USE ONLY) PO ONE (10:00)
[2019-06-15] MEDS: PRENATAL VITAMINS W/ FOLIC ACID TABLET (FP) PO SCH (10:06)
[2019-06-15 10:19] LABS: HEMATOCRIT 36.3 % (32.4-45.2); MCH 27.7 pg (25.7-33.7); MCHC 32.9 g/dl (32.0-36.0); MEAN PLT VOLUME 8.1 fl (7.5-11.1); PLATELET COUNT 328 K/MM3 (134-434); RBC 4.33 M/mm3 (3.60-5.2); RDW 15.4 % (11.6-15.6); WHITE BLOOD COUNT 8.2 K/mm3 (4.0-10.0)
[2019-06-15 10:32] LABS: ALBUMIN 3.1 g/dl (3.4-5.0); BILIRUBIN,TOTAL 0.3 mg/dL (0.2-1); BLOOD UREA NITROGEN 12.2 mg/dL (7-18); CALCIUM 8.7 mg/dL (8.5-10.1); CREATININE 0.7 mg/dL (0.55-1.3); TOT PROT 6.4 g/dl (6.4-8.2)
[2019-06-15] MEDS: diazePAM 5 MG TABLET PO PRN ×3 (12:07→21:57)
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
[2019-06-15] MEDS: THIAMINE HCL 100 MG TABLET (FP) PO SCH (21:57)
[2019-06-15] MEDS ORDERED: QUEtiapine FUMARATE 100 MG TABLET (FP) PO SCH (22:00)
[2019-06-16] MEDS ORDERED: diazePAM 5 MG TABLET PO PRN (00:05)
[2019-06-16 09:09] VITALS: BP 117/70; PULSE 85; TEMP 97.1
[2019-06-16] MEDS: PRENATAL VITAMINS W/ FOLIC ACID TABLET (FP) PO SCH (09:16)
[2019-06-16] MEDS ORDERED: METHADONE HCL 10 MG TABLET (FOR DETOX USE ONLY) PO ONE (10:00)
--- NOTE | 2019-06-16 10:54 | DS ---
[facility] Detox Discharge Summary Admission Date: 06/14/19 Discharge Date: 06/16/19 - History Present History: Opioid Dependence Additional Comments: 24 years old female admitted on 06/14/19 for opiate withdrawal sx management treated with methadone detox regimen prefers to leave the detox unit today and prepare self to go to medication assisted treatment program patient is alert oriented x 3 cardiac s1s2 regular rate rhythm respiratory clear lung bilaterally on auscultation extremities full range of motion Pertinent Past History: patient stated that he is leaving town and starts over strong recommend medication assisted 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 - Physical Exam Results Vital Signs: Vital Signs Temperature 97.1 F L 06/16/19 09:08 Pulse Rate 85 06/16/19 09:08 Respiratory Rate 16 06/16/19 09:08 Blood Pressure 117/70 06/16/19 09:08 O2 Sat by Pulse Oximetry (%) Pertinent Admission Physical Exam Findings: opiate withdrawal sx Laboratory Last Values WBC 8.2 K/mm3 (4.0-10.0) 06/15/19 08:15 RBC 4.33 M/mm3 (3.60-5.2) 06/15/19 08:15 Hgb 12.0 GM/dL (10.7-15.3) 06/15/19 08:15 Hct 36.3 % (32.4-45.2) 06/15/19 08:15 MCV 84.0 fl (80-96) 06/15/19 08:15 MCH 27.7 pg (25.7-33.7) 06/15/19 08:15 MCHC 32.9 g/dl (32.0-36.0) 06/15/19 08:15 RDW 15.4 % (11.6-15.6) 06/15/19 08:15 Plt Count 328 K/MM3 (134-434) 06/15/19 08:15 MPV 8.1 fl (7.5-11.1) 06/15/19 08:15 Sodium 137 mmol/L (136-145) 06/15/19 08:15 Potassium 4.0 mmol/L (3.5-5.1) 06/15/19 08:15 Chloride 106 mmol/L (98-107) 06/15/19 08:15 Carbon Dioxide 27 mmol/L (21-32) 06/15/19 08:15 Anion Gap 5 MMOL/L (8-16) L 06/15/19 08:15 BUN 12.2 mg/dL (7-18) 06/15/19 08:15 Creatinine 0.7 mg/dL (0.55-1.3) 06/15/19 08:15 Est GFR (CKD-EPI)AfAm 138.59 06/15/19 08:15 Est GFR (CKD-EPI)NonAf 119.58 06/15/19 08:15 Random Glucose 83 mg/dL (74-106) 06/15/19 08:15 Calcium 8.7 mg/dL (8.5-10.1) 06/15/19 08:15 Total Bilirubin 0.3 mg/dL (0.2-1) 06/15/19 08:15 AST 10 U/L (15-37) L 06/15/19 08:15 ALT 16 U/L (13-61) 06/15/19 08:15 Alkaline Phosphatase 78 U/L (45-117) 06/15/19 08:15 Total Protein 6.4 g/dl (6.4-8.2) 06/15/19 08:15 Albumin 3.1 g/dl (3.4-5.0) L 06/15/19 08:15 POC Urine HCG, Qual Negative 06/14/19 16:09 RPR Titer Nonreactive (NONREACTIVE) 06/15/19 08:15 lab noted Vital Signs Temperature 97.1 F L 06/16/19 09:08 Pulse Rate 85 06/16/19 09:08 Respiratory Rate 16 06/16/19 09:08 Blood Pressure 117/70 06/16/19 09:08 O2 Sat by Pulse Oximetry (%) - Treatment Hospital Course: Detox Protocol Followed, Detoxed Safely, Responded well, Discharged Condition Good, Rehab Referral Accepted Patient has Accepted a Rehab Referral to: community support approach - Medication Discharge Medications: Ambulatory Orders Albuterol Sulfate Inhaler - [Ventolin HFA Inhaler -] 1 puff IN DAILY PRN #1 inhaler 07/08/18 Mirtazapine [Remeron -] 30 mg PO DAILY 06/14/19 Quetiapine Fumarate [Seroquel -] 100 mg PO HS 06/14/19 Testosterone 200 mg [place] ASDIR 11/19/19 Naloxone HCl [Narcan] 4 mg NS ASDIR PRN #1 spray 06/15/19 - Diagnosis (1) Opioid dependence with withdrawal Current Visit: Yes Status: Acute (2) Nicotine dependence Current Visit: Yes Status: Acute Qualifiers: Nicotine product type: cigarettes Substance use status: in withdrawal Qualified Code(s): F17.213 - Nicotine dependence, cigarettes, with withdrawal (3) Substance induced mood disorder Current Visit: Yes Status: Suspected (4) Weight loss Current Visit: Yes Status: Acute (5) Asthma Current Visit: Yes Status: Chronic Qualifiers: Asthma severity: mild Asthma persistence: intermittent Asthma complication type: uncomplicated Qualified Code(s): J45.20 - Mild intermittent asthma, uncomplicated (6) Positive PPD Current Visit: Yes Status: Resolved - AMA Did Patient Leave Against Medical Advice: No
[2019-06-17] MEDS ORDERED: METHADONE HCL 5 MG TABLET (FOR DETOX USE ONLY) PO ONE (06:00)
== END 2019-06-16 09:16 | disposition home or self-care (01) | DRG 773 ==
LOC: YASAS 12:43 → Y3N 17:26
PROVIDERS: ADMIT Allergy & Immunology; ATTEND Allergy & Immunology
PROC: HZ2ZZZZ Detoxification Services for Substance Abuse Treatment (ICD-10-PCS; principal; 2019-06-14)
DX: F11.23 Opioid dependence with withdrawal (principal); F13.230 Sedative, hypnotic or anxiolytic dependence with withdrawal, uncomplicated; F14.20 Cocaine dependence, uncomplicated; F12.20 Cannabis dependence, uncomplicated; F17.210 Nicotine dependence, cigarettes, uncomplicated; F19.24 Other psychoactive substance dependence with psychoactive substance-induced mood disorder; F39 Unspecified mood [affective] disorder; F32.9 Major depressive disorder, single episode, unspecified; G47.00 Insomnia, unspecified; R76.11 Nonspecific reaction to tuberculin skin test without active tuberculosis; R63.4 Abnormal weight loss; Z68.21 Body mass index [BMI] 21.0-21.9, adult; Z91.5 Personal history of self-harm; Z91.14 Patient's other noncompliance with medication regimen
CPT/HCPCS: 36415; 71045-TC-FY; 80053; 81025; 85027; 86593

== ENCOUNTER 2020-04-18 10:53 | Inpatient (IN) | payer OTHER ==
--- NOTE | 2020-04-18 11:04 | BHS.RME ---
Substance Use & Tx History - Substance Use History Heroin Substance amount: 2 bundles Nicotine Substance amount: 5 ciggs Frequency of use: Daily Substance route: Smoking Date of Last Use: 04/18/20 Xanax Substance amount: 2mg - 10 tabs Frequency of use: Daily Substance route: Oral Date of Last Use: 04/18/20 Physical/Psych/Mental Status - Behavior General Behavior: Increased activity (restlessness, agitation) Eye Contact: Normal - Cooperativeness Cooperativeness: Cooperative - Thinking Thought Processes: Tight, Logical, Goal Directed - Physical Health Problems Is patient presently having any pain?: No Does patient presently have any injuries (include location): No Does patient currently have a fever: No Is patient : No COWS - Scale Resting Pulse: 0= [place] 80 or Below (mitigated by use this morning. Not yet in full withdrawals.) Sweatin= Chills/Flushing Restless Observation: 1= Difficult to Sit Still Pupil Size: 0= Normal to Room Light Bone or Joint Aches: 1= Mild Discomfort Runny Nose/ Eye Tearin= Nasal Congestion GI Upset > 30mins: 1= Stomach Cramp Tremor Observation: 1= Tremor [place], Not Seen Yawning Observation: 1= 1-2x During Session Anxiety or Irritability: 1=Feels Anxious/Irritable Goose Flesh Skin: 0=Smooth Skin COWS Score: 8
--- NOTE | 2020-04-18 11:32 | HP ---
"COWS - Scale Resting Pulse: 0= [place] 80 or Below (mitigated by use this morning. Not yet in full withdrawals.) Sweatin= Chills/Flushing Restless Observation: 1= Difficult to Sit Still Pupil Size: 0= Normal to Room Light Bone or Joint Aches: 1= Mild Discomfort Runny Nose/ Eye Tearin= Nasal Congestion GI Upset > 30mins: 1= Stomach Cramp Tremor Observation: 1= Tremor [place], Not Seen Yawning Observation: 1= 1-2x During Session Anxiety or Irritability: 1=Feels Anxious/Irritable Goose Flesh Skin: 0=Smooth Skin COWS Score: 8 CIWA Score - Admission Criteria OASAS Guidelines: Admission for Medically Managed Detox: Requires at least one of the followin. CIWA greater than 12 2. Seizures within the past 24 hours 3. Delirium tremens within the past 24 hours 4. Hallucinations within the past 24 hours 5. Acute intervention needed for co occurring medical disorder 6. Acute intervention needed for co occurring psychiatric disorder 7. Severe withdrawal that cannot be handled at a lower level of care (continued vomiting, continued diarrhea, abnormal vital signs) requiring intravenous medication and/or fluids 8. Admitting History and Physical - Admission Chief Complaint: Zaida James (wants to be addressed as Hoang) is a 25 yo patient who presents to [facility] requesting admission to detox for heroin and benzodiazepine use disorder. History of Present Illness: Zaida James (wants to be addressed as Hoang) male to female transgender 25 yo patient who presents to [facility] requesting admission to detox for heroin and benzodiazepine use disorder. Hoang was last here in May between 06/14 to 06/16, left early to continue MAT. PMH: Asthma, alopecia PSH: none Psych: anxiety SOC: lives in [facility] Legal: court appointment: possession of substance, 04/26/20 Substance Use History Heroin Substance amount: 2 bundles Nicotine Substance amount: 5 ciggs Frequency of use: Daily Substance route: Smoking Date of Last Use: 04/18/20 Xanax Substance amount: 2mg - 10 tabs Frequency of use: Daily Substance route: Oral Date of Last Use: 04/18/20 Amphetamines: pt denies Suboxone, stopped one month ago, was taking 8/2mg for five months Meets admission criteria as pt recently used heroin and full extent of withdrawal not seen. High risk of OD, poor recovery environment. Zaida James, 1995 Search Date: 04/18/2020 11:41:12 AM The Drug Utilization Report below displays all of the controlled substance prescriptions, if any, that your patient has filled in the last twelve months. The information displayed on this report is compiled from pharmacy submissions to the Department, and accurately reflects the information as submitted by the pharmacies. This report was requested by: Sue Hernandez | Reference #: [id number] Others' Prescriptions Patient Name: Zaida James Date: 1995 Address: [address] [place] [address] Sex: Female Rx Written Rx Dispensed Drug Quantity Days Supply Prescriber Name 02/10/2020 02/15/2020 buprenorphine-naloxone 8-2 mg sl film 60 30 Bowens, Veronica Lunsford PA 01/31/2020 02/04/2020 testosterone cyp 200 mg/ml 2ml 30 [place], Sera 12/29/2019 12/31/2019 buprenorphine-naloxone 8-2 mg sl film 60 30 Bowens, Veronica Jonn PA 12/26/2019 12/27/2019 testosterone cyp 200 mg/ml 2ml 28 Orlando, Sera 11/30/2019 12/01/2019 buprenorphine-naloxone 8-2 mg sl film 60 30 Bowens, Veronica Jonn PA 11/24/2019 11/24/2019 testosterone cyp 200 mg/ml 2ml 28 Orlando, Sera 11/22/2019 11/22/2019 buprenorphine-naloxone 8-2 mg sl film 14 7 Oracio Hope) History Source: Patient Limitations to Obtaining History: No Limitations - Past Medical History ...LMP: 10/26/17 - Smoking History Smoking history: Current every day smoker Have you smoked in the past 12 months: Yes Aproximately how many cigarettes per day: 10 - Alcohol/Substance Use Hx Alcohol Use: No Admission ROS [facility] Allergies/Adverse Reactions: Allergies Allergy/AdvReac Type Severity Reaction Status Date / Time No Known Allergies Allergy Verified 04/18/20 11:57 Exam Limitations: No Limitations - Ebola screening Have you traveled outside of the country in the last 21 days: No Have you been sick,other than usual withdrawal symptoms: No Do you have a fever: No - Review of Systems Constitutional: No Symptoms Reported EENT: reports: Nose Congestion Respiratory: reports: No Symptoms reported Cardiac: reports: No Symptoms Reported GI: reports: Other (lower abdominal pain) : reports: Dysuria Musculoskeletal: reports: Back Pain Integumentary: reports: No Symptoms Reported Neuro: reports: No Symptoms reported Endocrine: reports: No Symptoms Reported Hematology: reports: No Symptoms Reported Patient History - Patient Medical History Hx Anemia: No Hx Asthma: Yes Hx Chronic Obstructive Pulmonary Disease (COPD): No Hx Cancer: No Hx Cardiac Disorders: No Hx Congestive Heart Failure: No Hx Hypertension: No Hx Hypercholesterolemia: No Hx Pacemaker: No HX Cerebrovascular Accident: No Hx Seizures: No Hx Dementia: No Hx Diabetes: No Hx Gastrointestinal Disorders: No Hx Liver Disease: No Hx Genitourinary Disorders: No Hx Sexually Transmitted Disorders: No Hx Renal Disease (ESRD): No Hx Thyroid Disease: No Hx Human Immunodeficiency Virus (HIV): No (last 2015 negative ) Hx Hepatitis C: No (negative) Hx Depression: Yes Hx Suicide Attempt: Yes (Pt tried to cut self in 2006.) Hx Bipolar Disorder: No Hx Schizophrenia: No - Patient Surgical History Past Surgical History: No Hx Neurologic Surgery: No Hx Cataract Extraction: No Hx Cardiac Surgery: No Hx Lung Surgery: No Hx Breast Surgery: No Hx Breast Biopsy: No Hx Abdominal Surgery: No Hx Appendectomy: No Hx Cholecystectomy: No Hx Genitourinary Surgery: No Hx Section: No Hx Orthopedic Surgery: No Anesthesia Reaction: No - PPD History Date: 08/15/16 Results: negative - Reproductive History Last Menstrual Period: 10/26/17 - Smoking Cessation Smoking history: Current every day smoker Have you smoked in the past 12 months: Yes Aproximately how many cigarettes per day: 5 Cigars Per Day: 0 Hx Chewing Tobacco Use: No Initiated information on smoking cessation: Yes 'Breaking Loose' booklet given: 04/18/20 - Substances abused Heroin Substance route: Injection Frequency: Daily Amount used: 2 bundles Age of first use: 19 Date of last use: 04/18/20 Alprazolam (Xanax) Other (specify): 2mg Substance route: Oral Frequency: Daily Amount used: 10 tabs Age of first use: 15 Date of last use: 04/18/20 Admission Physical Exam BHS - Physical General Appearance: Yes: No Apparent Distress, Nourished, Appropriately Dressed, Other (sleepy) HEENTM: Yes: EOMI, Hearing grossly Normal, Normocephalic, Normal Voice Respiratory: Yes: Lungs Clear, No Respiratory Distress, No Accessory Muscle Use Neck: Yes: Within Normal Limits, Supple Breast: Yes: Breast Exam Deferred Cardiology: Yes: Regular Rhythm, Regular Rate Abdominal: Yes: Normal Bowel Sounds, Flat, Soft, Tenderness (mild lower quadrant) Genitourinary: Yes: Other (deferred) Back: Yes: Normal Inspection Musculoskeletal: Yes: Gait Steady Extremities: Yes: Normal Inspection, Non-Tender Neurological: Yes: Normal Response Integumentary: Yes: Track Knight (clean, no signs of infection) - Diagnostic (1) Nicotine dependence Current Visit: Yes Status: Acute Qualifiers: Nicotine product type: cigarettes Substance use status: uncomplicated Qualified Code(s): F17.210 - Nicotine dependence, cigarettes, uncomplicated Comment: 1. Nicotine replacement therapy. (2) Opioid dependence with withdrawal Current Visit: No Status: Acute Comment: 1. Admit to detox 2. Methadone detox protocol 3. routine labs 4. EKG. (3) Drug-induced mood disorder Current Visit: No Status: Chronic Comment: 1. Psychiatry consultation (4) Jhmymm-fm-cfgo transgender person Current Visit: No Status: Chronic Cleared for Admission S - Detox or Rehab [facility] Level of Care: Medically Managed Detox Regimen/Protocol: Methadone Breathalyzer - Breathalyzer Breathalyzer: 0 Urine Drug Screen - Test Device Lot number: [id number] Expiration date: 02/27/22 - Control Is test valid?: Yes - Results Drug screen NEGATIVE: No Urine drug screen results: THC-Marijuana, AMP-Amphetamines, FEN-Fentanyl, MOP- Opiates Inpatient Rehab Admission - Rehab Decision to Admit Inpatient rehab admission?: No"
[2020-04-18 12:07] VITALS: BMI 24.7
[2020-04-18] MEDS ORDERED: METHADONE HCL 10 MG TABLET (FOR DETOX USE ONLY) PO ONE (12:10)
[2020-04-18] MEDS ORDERED: MAGNESIUM CITRATE 300 ML BOTTLE PO PRN (12:10)
[2020-04-18] MEDS ORDERED: MAG HYDROX/AL HYDROX/SIMETH 30 ML UNIT-DOSE CUP PO PRN (12:10)
[2020-04-18] MEDS ORDERED: IBUPROFEN 400 MG TABLET (FP) PO PRN (12:10)
[2020-04-18] MEDS ORDERED: ONDANSETRON *ODT* 4 MG TABLET SL PRN (12:10)
[2020-04-18] MEDS ORDERED: cloNIDine HCL 0.1 MG TABLET PO PRN (12:10)
[2020-04-18] MEDS ORDERED: MAGNESIUM HYDROX 2400MG/30ML ORAL SUSPENSION 30 ML CUP PO PRN (12:10)
[2020-04-18] MEDS ORDERED: ACETAMINOPHEN 325 MG TABLET (FP) PO PRN ×2 (12:10)
[2020-04-18] MEDS ORDERED: MENTHOL/PHENOL 1 EACH UD MM PRN (12:10)
[2020-04-18] MEDS ORDERED: METHOCARBAMOL 500 MG TABLET PO PRN (12:10)
[2020-04-18] MEDS ORDERED: BISMUTH SUBSALICYLATE 262 MG/15 ML BTL PO PRN (12:10)
[2020-04-18] MEDS ORDERED: NICOTINE POLACRILEX 2 MG GUM BUC PRN (12:10)
--- NOTE | 2020-04-18 13:56 | EKG ---
Test Reason : Blood Pressure : / mmHG Vent. Rate : 100 BPM Atrial Rate : 100 BPM P-R Int : 146 ms QRS Dur : 080 ms QT Int : 334 ms P-R-T Axes : 054 037 032 degrees QTc Int : 430 ms NORMAL SINUS RHYTHM NORMAL ECG WHEN COMPARED WITH ECG OF 10-MAY-2018 18:15, NO SIGNIFICANT CHANGE WAS FOUND Confirmed by Mark Morgan ([id number]) on 04/18/2020 1:55:48 PM Referred By: Confirmed By:Mark Morgan
[2020-04-18] MEDS: hydrOXYzine PAMOATE 25 MG CAPSULE (FP) PO SCH ×3 (14:48→22:54)
[2020-04-18] MEDS ORDERED: METHADONE HCL 10 MG TABLET PO ONE (17:05)
[2020-04-18 18:21] LABS: HEMATOCRIT 37.2 % (32.4-45.2); HEMOGLOBIN 12.3 GM/dL (10.7-15.3); MCH 27.8 pg (25.7-33.7); MCHC 33.1 g/dl (32.0-36.0); MEAN PLT VOLUME 7.7 fl (7.5-11.1); PLATELET COUNT 438 K/MM3 (134-434); RBC 4.43 M/mm3 (3.60-5.2); RDW 15.7 % (11.6-15.6)
[2020-04-18 18:30] LABS: ALBUMIN 3.8 g/dl (3.4-5.0); ALK PHOS 106 U/L (45-117); ANION GAP 8 MMOL/L (8-16); BILIRUBIN,TOTAL < 0.1 mg/dL (0.2-1); BLOOD UREA NITROGEN 14.9 mg/dL (7-18); CALCIUM 9.1 mg/dL (8.5-10.1); CHLORIDE 101 mmol/L (98-107); CO2 24 mmol/L (21-32); CREATININE 0.9 mg/dL (0.55-1.3); GLUCOSE,RANDOM 117 mg/dL (74-106); POTASSIUM 4.1 mmol/L (3.5-5.1); SGOT/AST 16 U/L (15-37); SGPT/ALT 21 U/L (13-61); SODIUM 133 mmol/L (136-145); TOT PROT 8.3 g/dl (6.4-8.2)
[2020-04-18] MEDS: MELATONIN 5 MG TABLETS PO SCH (22:54)
[2020-04-18] MEDS: THIAMINE HCL 100 MG TABLET (FP) PO SCH (22:54)
[2020-04-19] MEDS: hydrOXYzine PAMOATE 25 MG CAPSULE (FP) PO SCH (05:41)
[2020-04-19] MEDS ORDERED: hydrOXYzine PAMOATE 25 MG CAPSULE (FP) PO PRN (09:14)
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
[2020-04-19] MEDS: NICOTINE 7 MG/24 HOURS TOPICAL PATCH TD SCH (09:52)
[2020-04-19] MEDS ORDERED: METHADONE HCL 10 MG TABLET (FOR DETOX USE ONLY) ONE (09:54)
[2020-04-19] MEDS ORDERED: METHADONE HCL 5 MG TABLET (FOR DETOX USE ONLY) ONE (09:54)
[2020-04-19] MEDS: diazePAM 5 MG TABLET PO PRN ×4 (09:55→22:37)
[2020-04-19] MEDS: PRENATAL VITAMINS W/ FOLIC ACID TABLET (FP) PO SCH (09:56)
[2020-04-19] MEDS ORDERED: METHADONE (DETOX) 20 MG, METHADONE (DETOX) 5 MG PO ONE (10:00)
[2020-04-19] MEDS ORDERED: ALBUTEROL SO4 HFA INHALER IH PRN (11:49)
--- NOTE | 2020-04-19 11:49 | PN ---
BHS COWS - Scale Resting Pulse: 1= [place] 81-100 Sweatin= Chills/Flushing Restless Observation: 1= Difficult to Sit Still Pupil Size: 0= Normal to Room Light Bone or Joint Aches: 1= Mild Discomfort Runny Nose/ Eye Tearin= Runny Nose/Eyes GI Upset > 30mins: 1= Stomach Cramp Tremor Observation of Outstretched Hands: 2= Slight Tremor Visible Yawning Observation: 1= 1-2x During Session Anxiety or Irritability: 2=Irritable/Anxious Goose Flesh Skin: 0=Smooth Skin COWS Score: 12 BHS Progress Note (SOAP) Subjective: teary eyes running nose sweats chills body aches agitation restless Objective: 04/19/20 11:48 Vital Signs Temperature 97.8 F 04/19/20 09:00 Pulse Rate 83 04/19/20 09:00 Respiratory Rate 17 04/19/20 09:00 Blood Pressure 105/52 L 04/19/20 09:00 O2 Sat by Pulse Oximetry (%) 99 04/19/20 09:00 Laboratory Tests 04/18/20 04/18/20 04/18/20 12:04 12:25 12:25 WBC 8.0 RBC 4.43 Hgb 12.3 Hct 37.2 MCV 84.0 MCH 27.8 MCHC 33.1 RDW 15.7 H Plt Count 438 H D MPV 7.7 Sodium 133 L Potassium 4.1 Chloride 101 Carbon Dioxide 24 Anion Gap 8 BUN 14.9 Creatinine 0.9 Est GFR (CKD-EPI)AfAm 101.56 Est GFR (CKD-EPI)NonAf 87.63 Random Glucose 117 H Calcium 9.1 Total Bilirubin < 0.1 L AST 16 ALT 21 Alkaline Phosphatase 106 Total Protein 8.3 H Albumin 3.8 POC Urine HCG, Qual Negative Syphilis Serology HIV Ag/Ab Combo Qual 04/18/20 04/18/20 12:25 12:25 WBC RBC Hgb Hct MCV MCH MCHC RDW Plt Count MPV Sodium Potassium Chloride Carbon Dioxide Anion Gap BUN Creatinine Est GFR (CKD-EPI)AfAm Est GFR (CKD-EPI)NonAf Random Glucose Calcium Total Bilirubin AST ALT Alkaline Phosphatase Total Protein Albumin POC Urine HCG, Qual Syphilis Serology Non-reactive HIV Ag/Ab Combo Qual Negative labs noted aaox3 ambulating no acute distress Assessment: 04/19/20 11:49 withdrawals Plan: continue detox valium 10mg prn x 3 days ordered increase fluids
[2020-04-19] MEDS: busPIRone HCL 10 MG TABLET (FP) PO SCH ×2 (14:13→22:34)
[2020-04-19] MEDS ORDERED: QUEtiapine FUMARATE 50 MG TABLET PO SCH (22:00)
[2020-04-19] MEDS: MELATONIN 5 MG TABLETS PO SCH (22:34)
[2020-04-19] MEDS: THIAMINE HCL 100 MG TABLET (FP) PO SCH (22:35)
[2020-04-20] MEDS: diazePAM 5 MG TABLET PO PRN (05:47)
[2020-04-20] MEDS: busPIRone HCL 10 MG TABLET (FP) PO SCH (05:47)
[2020-04-20 09:23] VITALS: BP 120/51; PULSE 68; TEMP 97.8
[2020-04-20] MEDS ORDERED: METHADONE HCL 10 MG TABLET (FOR DETOX USE ONLY) PO ONE (10:00)
--- NOTE | 2020-04-20 10:27 | PN ---
BHS COWS - Scale Resting Pulse: 0= [place] 80 or Below Sweatin= Chills/Flushing Restless Observation: 1= Difficult to Sit Still Pupil Size: 0= Normal to Room Light Bone or Joint Aches: 1= Mild Discomfort Runny Nose/ Eye Tearin= None GI Upset > 30mins: 0= None Tremor Observation of Outstretched Hands: 1= Tremor [place], Not Seen Yawning Observation: 1= 1-2x During Session Anxiety or Irritability: 1=Feels Anxious/Irritable Goose Flesh Skin: 0=Smooth Skin COWS Score: 6 BHS Progress Note (SOAP) Subjective: sweats anxiety restless Objective: 04/20/20 10:26 Vital Signs Temperature 97.8 F 04/20/20 08:40 Pulse Rate 68 04/20/20 08:40 Respiratory Rate 18 04/20/20 08:40 Blood Pressure 120/51 L 04/20/20 08:40 O2 Sat by Pulse Oximetry (%) 99 04/20/20 08:40 Laboratory Tests 04/18/20 04/18/20 04/18/20 12:04 12:25 12:25 WBC 8.0 RBC 4.43 Hgb 12.3 Hct 37.2 MCV 84.0 MCH 27.8 MCHC 33.1 RDW 15.7 H Plt Count 438 H D MPV 7.7 Sodium 133 L Potassium 4.1 Chloride 101 Carbon Dioxide 24 Anion Gap 8 BUN 14.9 Creatinine 0.9 Est GFR (CKD-EPI)AfAm 101.56 Est GFR (CKD-EPI)NonAf 87.63 Random Glucose 117 H Calcium 9.1 Total Bilirubin < 0.1 L AST 16 ALT 21 Alkaline Phosphatase 106 Total Protein 8.3 H Albumin 3.8 POC Urine HCG, Qual Negative Syphilis Serology COVID-19 (WENDI) HIV Ag/Ab Combo Qual 04/18/20 04/18/20 04/18/20 12:25 12:25 14:15 WBC RBC Hgb Hct MCV MCH MCHC RDW Plt Count MPV Sodium Potassium Chloride Carbon Dioxide Anion Gap BUN Creatinine Est GFR (CKD-EPI)AfAm Est GFR (CKD-EPI)NonAf Random Glucose Calcium Total Bilirubin AST ALT Alkaline Phosphatase Total Protein Albumin POC Urine HCG, Qual Syphilis Serology Non-reactive COVID-19 (WENDI) Not detected HIV Ag/Ab Combo Qual Negative aaox3 ambulating no acute distress Assessment: 04/20/20 10:27 withdrawals Plan: continue detox
[2020-04-20] MEDS: PRENATAL VITAMINS W/ FOLIC ACID TABLET (FP) PO SCH (10:52)
[2020-04-20] MEDS: NICOTINE 7 MG/24 HOURS TOPICAL PATCH TD SCH (10:58)
--- NOTE | 2020-04-20 11:11 | PN ---
S Progress Note Note: pt did not want to stay to complete the detox. Pt was restless and adamant to leave. Pt was made aware of the risks of relapse, seizures, DT, OD and or loss, pt chose to sign out AMA.
--- NOTE | 2020-04-20 11:27 | DS ---
[facility] Detox Discharge Summary Admission Date: 04/18/20 - History Present History: Cannabis Dependence, Opioid Dependence, Sedative Dependence - Physical Exam Results Vital Signs: Vital Signs Temperature 97.8 F 04/20/20 08:40 Pulse Rate 68 04/20/20 08:40 Respiratory Rate 18 04/20/20 08:40 Blood Pressure 120/51 L 04/20/20 08:40 O2 Sat by Pulse Oximetry (%) 99 04/20/20 08:40 Pertinent Admission Physical Exam Findings: Vital Signs Temperature 97.8 F 04/20/20 08:40 Pulse Rate 68 04/20/20 08:40 Respiratory Rate 18 04/20/20 08:40 Blood Pressure 120/51 L 04/20/20 08:40 O2 Sat by Pulse Oximetry (%) 99 04/20/20 08:40 Laboratory Tests 04/18/20 04/18/20 04/18/20 12:04 12:25 12:25 WBC 8.0 RBC 4.43 Hgb 12.3 Hct 37.2 MCV 84.0 MCH 27.8 MCHC 33.1 RDW 15.7 H Plt Count 438 H D MPV 7.7 Sodium 133 L Potassium 4.1 Chloride 101 Carbon Dioxide 24 Anion Gap 8 BUN 14.9 Creatinine 0.9 Est GFR (CKD-EPI)AfAm 101.56 Est GFR (CKD-EPI)NonAf 87.63 Random Glucose 117 H Calcium 9.1 Total Bilirubin < 0.1 L AST 16 ALT 21 Alkaline Phosphatase 106 Total Protein 8.3 H Albumin 3.8 POC Urine HCG, Qual Negative Syphilis Serology COVID-19 (WENDI) HIV Ag/Ab Combo Qual 04/18/20 04/18/20 04/18/20 12:25 12:25 14:15 WBC RBC Hgb Hct MCV MCH MCHC RDW Plt Count MPV Sodium Potassium Chloride Carbon Dioxide Anion Gap BUN Creatinine Est GFR (CKD-EPI)AfAm Est GFR (CKD-EPI)NonAf Random Glucose Calcium Total Bilirubin AST ALT Alkaline Phosphatase Total Protein Albumin POC Urine HCG, Qual Syphilis Serology Non-reactive COVID-19 (WENDI) Not detected HIV Ag/Ab Combo Qual Negative labs noted aaox3 ambulating no acute distress lungs CTA pt sign out AMA - Treatment Hospital Course: Rehab Referral Accepted - Medication Discharge Medications: Ambulatory Orders Albuterol Sulfate Inhaler - [Ventolin HFA Inhaler -] 1 puff IN DAILY PRN #1 inhaler 07/08/18 Quetiapine Fumarate [Seroquel -] 150 mg PO HS 06/14/19 Testosterone 200 mg IL ASDIR 06/14/19 Naloxone HCl [Narcan] 4 mg NS ASDIR PRN #1 spray 06/15/19 Buspirone HCl [Buspar -] 10 mg PO TID 04/18/20 - Diagnosis (1) Nicotine dependence Current Visit: Yes Status: Chronic Qualifiers: Nicotine product type: cigarettes Substance use status: uncomplicated Qualified Code(s): F17.210 - Nicotine dependence, cigarettes, uncomplicated (2) Substance-induced sleep disorder Current Visit: Yes Status: Acute (3) Alopecia Current Visit: Yes Status: Chronic (4) Cannabis abuse Current Visit: No Status: Acute (5) Fentanyl dependence Current Visit: Yes Status: Chronic (6) Opioid dependence with withdrawal Current Visit: Yes Status: Chronic (7) Sedative, hypnotic or anxiolytic dependence with withdrawal, uncomplicated Current Visit: No Status: Acute (8) Substance induced mood disorder Current Visit: No Status: Acute (9) Weight loss Current Visit: No Status: Acute (10) Anxiety Current Visit: No Status: Chronic (11) Asthma Current Visit: No Status: Chronic Qualifiers: Asthma severity: mild Asthma persistence: intermittent Asthma complication type: uncomplicated Qualified Code(s): J45.20 - Mild intermittent asthma, uncomplicated (12) Cocaine dependence, uncomplicated Current Visit: Yes Status: Chronic (13) Drug-induced mood disorder Current Visit: No Status: Chronic (14) Lbglxr-[id number]-lpds transgender person Current Visit: No Status: Chronic (15) Insomnia Current Visit: No Status: Chronic (16) Mood disorder Current Visit: No Status: Chronic (17) Non compliance w medication regimen Current Visit: No Status: Chronic (18) Positive PPD Current Visit: No Status: Resolved - AMA Did Patient Leave Against Medical Advice: Yes
[2020-04-21] MEDS ORDERED: METHADONE (DETOX) 10 MG, METHADONE (DETOX) 5 MG PO ONE (10:00)
[2020-04-22] MEDS ORDERED: METHADONE HCL 10 MG TABLET (FOR DETOX USE ONLY) PO ONE (10:00)
[2020-04-23] MEDS ORDERED: METHADONE HCL 5 MG TABLET (FOR DETOX USE ONLY) PO ONE (06:00)
== END 2020-04-20 11:20 | disposition left against medical advice (07) | DRG 770 ==
LOC: YASAS 10:53 → Y6N 12:33
PROVIDERS: ADMIT Allergy & Immunology; ATTEND Allergy & Immunology
PROC: HZ2ZZZZ Detoxification Services for Substance Abuse Treatment (ICD-10-PCS; principal; 2020-04-18)
DX: F11.23 Opioid dependence with withdrawal (principal); F13.230 Sedative, hypnotic or anxiolytic dependence with withdrawal, uncomplicated; F14.20 Cocaine dependence, uncomplicated; F12.10 Cannabis abuse, uncomplicated; F17.210 Nicotine dependence, cigarettes, uncomplicated; F19.282 Other psychoactive substance dependence with psychoactive substance-induced sleep disorder; F19.24 Other psychoactive substance dependence with psychoactive substance-induced mood disorder; F39 Unspecified mood [affective] disorder; F64.0 Transsexualism; L65.9 Nonscarring hair loss, unspecified; R63.4 Abnormal weight loss; Z68.24 Body mass index [BMI] 24.0-24.9, adult; Z91.14 Patient's other noncompliance with medication regimen
CPT/HCPCS: 36415; 80053; 81025; 85027; 86780; 87389; 93005; 93010; J0735; U0003